=== PATIENT | male | born 1950 | race Caucasian/White ===

== ENCOUNTER 2022-10-21 11:06 | Observation (INO) | payer OTHER, MEDICAID, SELFPAY ==
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
--- NOTE | ~2022-10-21 | CT_ITS ---
EXAMINATION: CT angio head neck stroke CLINICAL INFORMATION: Left-sided decreased sensation. Suspect acute stroke. COMPARISON: CT head 10/21/2022. TECHNIQUE: [employer] Liaison images were obtained. A CT angiogram of the head and neck was performed in the arterial phase after the intravenous administration of 70 mL Omnipaque 350. Pre and delayed postcontrast images of the head were also obtained. 3D images were processed on an independent workstation under concurrent supervision. Arterial stenoses are measured in accordance with NASCET criteria or similar method if applicable. This CT examination was performed using dose optimization techniques as appropriate, including one or more of the following: Automated exposure control, iterative reconstruction, and adjustment of technique factors (mA and/or kVp) according to patient size (this includes techniques or standardized protocols for targeted exams where dose is matched to indication/reason for exam). Fleischner Society criteria for the followup of incidental pulmonary nodules was implemented if appropriate. Total exam dose-length product 1597 mGy-cm FINDINGS: Head: Delayed postcontrast images reveal no abnormal intracranial mass or enhancement. There is no intracranial mass effect or midline shift. Lateral and third ventricles are proportionate to the subarachnoid spaces. No hydrocephalus. Ramos-white matter differentiation is grossly preserved and there is no evidence of acute territorial infarct. The calvarium and skull base are intact. Mastoid air cells and middle ear cavities are well aerated. Mild paranasal sinus disease primarily affecting the ethmoid air cells and maxillary sinuses. CT angiogram neck: Scattered atheromatous calcification involves the aortic arch apex. Origins of the major aortic branches are patent. Common carotid arteries are patent. Partially calcified atheromatous plaque involves both carotid bifurcations. No stenosis of the extracranial internal carotid arteries. The cervical segments of the vertebral arteries are widely patent. CT angiogram head: Intracranial internal carotid arteries are patent. The intradural vertebral artery segments and basilar artery are patent. Anterior, middle, and posterior cerebral artery complexes are normal. No intracranial large vessel occlusion. No identifiable aneurysm or high flow vascular lesion. Other: Soft tissues of the neck including the thyroid gland are normal. Grossly no pathologically enlarged cervical lymph nodes. No acute osseous finding. Specifically no worrisome lytic or blastic osseous lesion. Lung apices are clear. CT/CT angio head neck stroke IMPRESSION: Unremarkable examination in that there is no evidence of acute territorial infarct or hemorrhage. No abnormal intracranial mass or enhancement. There is no stenosis of the cervical carotid or vertebral arteries. No intracranial large vessel occlusion. This critical result was discussed with Chris Aguila at 11:53 AM on 10/21/2022 and it was ascertained that the content and urgency of the report was understood at the time of direct communication.
--- NOTE | ~2022-10-21 | XR_ITS ---
EXAMINATION: XR ABDOMEN KUB CLINICAL INDICATION: MRI clearance. COMPARISON: None available. TECHNIQUE: AP view of the abdomen. XR/XR KUB FINDINGS AND IMPRESSION: Normal bowel gas pattern. Moderate amount fecal material is present in the colon. No evidence of renal stones. Mild and moderate spondylosis of the visualized spine. Aortobiiliac stent graft in place. There are no unexpected radiopaque foreign bodies that would preclude performance of an MRI.
--- NOTE | ~2022-10-21 | CT_ITS ---
EXAMINATION: CT HEAD WITHOUT CONTRAST CLINICAL INFORMATION: Left-sided decreased sensation. COMPARISON: No relevant prior imaging. TECHNIQUE: [employer] images were obtained. CT imaging of the head was performed without contrast. Data was reformatted into multiplanar images at the acquisition workstation. This CT examination was performed using dose optimization techniques as appropriate, including one or more of the following: Automated exposure control, iterative reconstruction, and adjustment of technique factors (mA and/or kVp) according to patient size (this includes techniques or standardized protocols for targeted exams where dose is matched to indication/reason for exam). Fleischner Society criteria for the followup of incidental pulmonary nodules was implemented if appropriate. DLP: 765 mGy-cm. FINDINGS: There is no acute intracranial hemorrhage or abnormal extra-axial collection. No intracranial mass effect or midline shift. Lateral and third ventricles are proportionate to the subarachnoid spaces. No hydrocephalus. There is global loss of parenchymal volume and scattered chronic small vessel ischemic changes within the periventricular white matter. Ramos-white matter differentiation is grossly preserved and there is no evidence of acute territorial infarct. The calvarium and skull base are intact. Mastoid air cells and middle ear cavities are well aerated. Mild paranasal sinus disease primarily affecting the alveolar recesses of the maxillary sinuses. Globes and orbits are grossly symmetric. CT/CT head for stroke IMPRESSION: There is global loss of parenchymal volume and scattered chronic small vessel ischemic changes within the periventricular white matter. No evidence of acute territorial infarct or hemorrhage. This critical result was discussed with Chris Aguila at 11:44 AM on 10/21/2022 and it was ascertained that the content and urgency of the report was understood at the time of direct communication.
--- NOTE | ~2022-10-21 | XR_ITS ---
EXAMINATION: XR CHEST CLINICAL INFORMATION: Stroke COMPARISON: None available. TECHNIQUE: AP upright portable view of the chest was obtained. 11:50 AM FINDINGS: The lungs are well expanded. Multiple streaky densities are seen at the lung bases, left greater than right which most likely represent atelectasis, less likely pneumonia. No interstitial pulmonary edema or pneumothorax. No pleural effusion. The cardiomediastinal silhouette is within normal limits. Calcification of the thoracic arch indicative of atherosclerotic disease. XR/XR chest 1V IMPRESSION: No acute disease.
--- NOTE | ~2022-10-21 | MR_ITS ---
EXAMINATION: MR BRAIN WITHOUT CONTRAST CLINICAL INFORMATION: TIA. COMPARISON: Head CT dated 10/21/2022. TECHNIQUE: Multiplanar, multisequence imaging of the brain was performed without contrast. FINDINGS: No diffusion abnormalities are identified to suggest an acute infarct. Moderate diffuse brain parenchymal volume loss noted with ex vacuo dilatation of the ventricles. Mild chronic white matter microangiopathy is visible. No mass effect or midline shift is seen. No extra-axial fluid collections are seen. The brainstem and cerebellum are normal. The gradient refocused acquisition is normal. The craniovertebral junction, marrow signal, and midline structures are normal. The major intracranial flow voids at the level of the [place] are preserved. The dural venous sinus flow voids are maintained. There is trace fluid in the dependent mastoid air cells. Mild ethmoid sinus mucosal thickening noted. MR/MR head/brain wo con IMPRESSION: No acute intracranial process. Mild chronic white matter microangiopathy and generalized parenchymal volume loss.
[2022-10-21 11:12] VITALS: BP 111/73; PULSE 72; O2SAT 95
[2022-10-21 11:19] VITALS: BP 138/50; PULSE 72; RESP 15; TEMP 36.6; O2SAT 93; BMI 33.6
--- NOTE | 2022-10-21 11:19 | ED.NEUROSD ---
HPI - Neuro Symptoms/Deficit General Chief Complaint: Neuro Symptoms/Deficit Stated Complaint: L SIDE DECREASED SENSATION FROM SNF PER EMS Time Seen by Provider: 10/21/22 11:12 Source: patient and EMS Mode of arrival: EMS Limitations: other History of Present Illness HPI Narrative: 72-year-old male unknown to this hospital known to have schizoaffective disorder bipolar disorder has history of TA with her breathing residual left-sided weakness COPD restless legs syndrome diabetes hypertension coronary disease aortic aneurysm repair who presents from the patient [facility] facility where he has been living. Patient was in patient has been transferred over to this lower level care. Patient is here today after the nurse notes that he was complaining of some weakness of sensation on his left side patient denies any falls or injuries. Patient is very unreliable in all on helpful historian states unsure of his past medical history does not know if he has had a stroke in the past Related Data Allergies Allergy/AdvReac Type Severity Reaction Status Date / Time atorvastatin Allergy Unknown Verified 10/21/22 11:18 gabapentin Allergy Unknown Verified 10/21/22 11:18 nicotine Allergy Unknown Verified 10/21/22 11:18 Review of Systems Review of Systems: Review of systems: General: Patient denies any fever chills recent illness or falls Musculoskeletal: Denies back pain or body aches or other injuries HEENT: denies headache, runny nose, ear pain Respiratory: denies shortness of breath, cough Cardiovascular: no chest pain or palpitations : denies dysuria, frequency Abdomen: no nausea vomiting denies abdominal pain Extremities: no swelling, no pain Skin: no diaphoresis Yes all other systems are reviewed and are negative PMFSH Social History Social History Advance Directives: No Advance Directives Information Provided: No Physical Exam Vital Signs: Vital Signs: Last Vital Signs Temp 97.8 F 10/21/22 11:19 Pulse 72 10/21/22 11:19 Resp 15 10/21/22 11:19 BP 138/50 L 10/21/22 11:19 Pulse Ox 93 10/21/22 11:19 O2 Del Method Room Air 10/21/22 11:19 BMI result Body Mass Index 33.6 Neurological exam: CN II- XII tested. Patient is alert and oriented to person place and time. Patient has no dysphagia or dysarthia, denies good vision in all four vision chávez no nystagmus on exam, good strength to upper and lower extremities with normal reflexes to brachioradialis, wrist, patella and achilles. Negative romberg, good finger to nose and heel to crowley. General: Well-appearing well-nourished in no signs of distress HEENT: Normocephalic atraumatic Neck: No signs of JVD, no masses no tenderness or lymphadenopathy Cardiovascular: Regular rate and rhythm Respiratory: Clear to auscultation bilaterally Abdomen: Soft nontender no masses Extremities: Normal pedal pulses no signs of edema Skin: Dry warm no rashes Back: No tenderness full ROM Course Course Course Narrative: 1153 I spoke with radiology who state the CTA is negative and non contrast no ELVO. I spoke with Dr. Funk and relayed the story he felt the patient should be admitted. I offered up doing a MRI here as he has no obvious new deficits here at this time. He felt he should still get the full work up and admit . Labs are still pending at this time. 1244 Labs are all normal at this time. I will admit to medicine. Medications Administered Discontinued Medications Generic Name Dose Route Start Last Admin Trade Name Lauri PRN Reason Stop Dose Admin Aspirin 324 mg 10/21/22 11:52 10/21/22 12:04 Aspirin 81 Mg Tab.Chew PO 10/21/22 11:53 324 mg ONCE ONE Administration Sodium Chloride 1,000 mls @ 999 mls/hr 10/21/22 11:30 10/21/22 11:55 Ns IV 10/21/22 12:30 999 mls/hr .Q1H1M RANJEET Administration Iohexol 100 ml 10/21/22 11:43 10/21/22 11:43 Iohexol 350 Mg/Ml 100 Ml Infus..Btl IV 10/21/22 11:44 70 ml ONCE ONE Administration Medical Decision Making Medical Decision Making MDM Narrative: 72-year-old male with left-sided decreased sensation normal neuro exam on arrival NIH stroke scale 0 patient is not a tPA candidate again on repeat patient does not meet any criteria for tPA slide of this is chronic for the patient he is mostly sluggish as opposed to any acute deficit appreciated and this patient could be related to medication effect or other things as he is mostly sluggish as I said before. Will give patient fluids and check labs. Send patient for CT I will consult Neurology. Differential Diagnosis Differential Diagnoses: The differential diagnosis associated with the presentation includes Acute CVA patient is schizophrenic before adenoma is version or other psychiatric issue also get a workup for UTI infection electrolyte abnormality Admission/Observation Consideration of admission/observation: Escalation of care including admission/observation considered Consult Healthcare Provider Consult neurology on arrival Lab Data [facility] Lab Attestation statement: I reviewed the patient's lab results. 10/21/22 12:09 10/21/22 12:09 Labs: Lab Results 10/21/22 10/21/22 10/21/22 Range/Units 11:52 12:09 12:09 WBC 4.6 L (4.8-10.8) X10*3/uL RBC 4.78 (4.60-5.80) X10*6/uL Hgb 14.1 (14.0-18.0) g/dl Hct 42.7 (42.0-52.0) % MCV 89.3 (80.0-98.0) fL MCH 29.5 (27.0-33.0) pg MCHC 33.0 (31.0-36.0) g/dl RDW 13.9 (11.0-16.0) % Plt Count 196 (160-400) X10*3/uL MPV 9.5 (9.4-12.4) fL Immature Gran % (Auto) 0.4 (0.0-0.4) % Neut % (Auto) 66.6 (45-73) % Lymph % (Auto) 21.2 (20-40) % [place] % (Auto) 8.5 (2-11) % Eos % (Auto) 2.6 (0-4) % Baso % (Auto) 0.7 (0-2) % Lymph # (Auto) 1.0 L (1.2-4.9) X10*3/uL [place] # (Auto) 0.4 (0.1-1.2) X10*3/uL Eos # (Auto) 0.1 (0.0-0.4) X10*3/uL Baso # (Auto) 0.0 (0.0-0.2) X10*3/uL Abs Immat Gran (auto) 0.02 (0.00-0.03) X10*3/uL Absolute Neuts (auto) 3.1 (2.0-8.3) x10*3/uL Absolute Nucleated RBC 0.000 (0.0-0.012) X10*3/uL Nucleated RBC % (auto) 0.0 (0.0-0.2) /100WBC PT 11.6 (11.1-13.3) SEC Whole Blood PT 12.4 (11.1-13.5) sec INR 1.0 (0.9-1.1) Whole Blood INR 1.0 (0.9-1.1) APTT 28.8 (26.0-36.4) SEC Sodium 139 (135-145) mmol/L Potassium 4.7 (3.3-5.1) mmol/L Chloride 106 (96-108) mmol/L Carbon Dioxide 26 (22-29) mmol/L Anion Gap 12 (12-20) BUN 17 H (9-16) mg/dL Creatinine 0.92 (0.5-1.4) mg/dL Estim Creat Clear Calc 82.0 Estimated GFR > 60 POC Glucose 190 H (60-115) mg/dL Random Glucose 175 H 175 H (60-115) mg/dL Calcium 9.7 (8.4-10.2) mg/dL Total Bilirubin 0.3 (0.0-1.0) mg/dL Direct Bilirubin 0.1 (0.0-0.5) mg/dL AST 16 (5-37) U/L ALT 20 (0-40) U/L Alkaline Phosphatase 67 (39-117) U/L Total Protein 6.4 L (6.5-8.0) g/dL Albumin 4.1 (3.5-5.0) g/dL Urine Color Yellow Urine Appearance Clear Urine pH 6.5 (5.0-9.0) Ur Specific [place] 1.020 (1.005-1.025) Urine Protein Negative (Neg-Trace) mg/dL Urine Glucose (UA) Negative (Negative) mg/dL Urine Ketones Negative (Negative) mg/dL Urine Blood Negative (Negative) Urine Nitrite Negative (Negative) Ur Leukocyte Esterase Negative (Negative) Independent Interpretation I performed an independent interpretation of an: EKG, Rhythm Strip and CT Scan Radiology Impression Discussion of test interpretation with radiology: I discussed test interpretation with the radiologist and I have reviewed the radiologist's reading. Independent Historian Clinical information obtained from an independent historian. History obtained from or confirmed by: EMS and Other External Record Review there are no previous records to review NIH Stroke Scale Internal: Initial- Upon Arrival Level of Consciousness: Alert Level of Consciousness Questions: Answers both questions correctly Level of Consciousness Commands: Performs both tasks correctly Best Gaze: Normal Visual: No visual loss Facial Palsy: Normal Motor Arm (Right): No drift Motor Arm (Left): No drift Motor Leg (Right): No drift Motor Leg (Left): No drift Limb Ataxia: Absent Sensory: Normal Best Language: No aphasia Dysarthia: Normal Extinction and Inattention: No abnormality Score: 0 Critical Care Time Critical Care Time Critical Care Time: Yes Total Critical Care Time: 35 Attestation: Patient with stroke seen immediately on arrival not a TPA candidate I did speak with radiology x 2 as well as Neurology and admitted to the hospital Discharge Plan Discharge Clinical Impression: Transient cerebral ischemia, Acute left-sided muscle weakness Patient Disposition: Admitted As Inpatient
--- NOTE | 2022-10-21 11:23 | ECG_ITS ---
Test Reason : weakness Blood Pressure : / mmHG Vent. Rate : 071 BPM Atrial Rate : 071 BPM P-R Int : 154 ms QRS Dur : 080 ms QT Int : 372 ms P-R-T Axes : 034 -66 039 degrees QTc Int : 404 ms Normal sinus rhythm Left axis deviation Inferior infarct , age undetermined Abnormal ECG No previous ECGs available Referred By: Chris Aguila Electronically Signed By:ISABELA JERRY
--- NOTE | 2022-10-21 11:31 | PC.NURSE ---
patient from [facility], noted to have weakness by staff. pt presented with staff member. IV placed in the R AC, #20. VSS, patient has no complaints
[2022-10-21] MEDS: iohexoL 350 MG/ML 100 ML INFUS..BTL IV (11:43)
[2022-10-21] MEDS: 0.9 % Sodium Chloride 1,000 ML 999 ML IV (11:55)
[2022-10-21 11:56] LABS: Prothrombin Time Whole Bld POC 12.4 sec (11.1-13.5)
[2022-10-21 11:57] LABS: Glucose, Whole Blood 190 mg/dL (60-115)
[2022-10-21] MEDS: Aspirin 81 MG TAB.CHEW 324 MG PO (12:04)
--- NOTE | 2022-10-21 12:05 | PC.NURSE ---
patient sitting up in bed, passed swallow eval. patient, awake and alert, making jokes. states he has no pain or other complaints.
[2022-10-21 12:17] LABS: MANUAL DIFF FLAG NO
[2022-10-21 12:21] LABS: Basophils Percent Auto 0.7 % (0-2); Eosinophils Absolute Auto 0.1 X10*3/uL (0.0-0.4); Eosinophils Percent Auto 2.6 % (0-4); Hematocrit 42.7 % (42.0-52.0); Hemoglobin 14.1 g/dl (14.0-18.0); Imm Gran Abs Auto 0.02 X10*3/uL (0.00-0.03); Imm Gran Pct Auto 0.4 % (0.0-0.4); Lymphocytes Percent Auto 21.2 % (20-40); Mean Corpuscular Hemoglobin 29.5 pg (27.0-33.0); Mean Corpuscular Volume 89.3 fL (80.0-98.0); Mean Platelet Volume 9.5 fL (9.4-12.4); Monocytes Absolute Auto 0.4 X10*3/uL (0.1-1.2); Monocytes Percent Auto 8.5 % (2-11); Neutrophils Absolute Auto 3.1 x10*3/uL (2.0-8.3); Neutrophils Percent Auto 66.6 % (45-73); Platelet Count 196 X10*3/uL (160-400); Red Blood Count 4.78 X10*6/uL (4.60-5.80); Red Cell Distribution Width 13.9 % (11.0-16.0); White Blood Count 4.6 X10*3/uL (4.8-10.8)
[2022-10-21 12:23] LABS: Appearance Urine Clear; Color Urine Yellow; Glucose Urine UA Negative (Negative); Leukocyte Esterase Urine Negative (Negative); Nitrite Urine Negative (Negative); PH 6.5 (5.0-9.0); Urine Blood Negative (Negative); Urine Ketones Negative (Negative); Urine Protein Negative (Neg-Trace)
[2022-10-21 12:27] LABS: Prothrombin Time 11.6 SEC (11.1-13.3)
[2022-10-21 12:30] LABS: Partial Thromboplastin Time 28.8 SEC (26.0-36.4)
[2022-10-21 12:31] LABS: Glucose Random 175 mg/dL (60-115)
[2022-10-21 12:36] LABS: Alanine Aminotransferase 20 U/L (0-40); Albumin Level 4.1 g/dL (3.5-5.0); Alkaline Phosphatase 67 U/L (39-117); Anion Gap 12 (12-20); Aspartate Amino Transferase 16 U/L (5-37); Bilirubin Direct 0.1 mg/dL (0.0-0.5); Bilirubin Total 0.3 mg/dL (0.0-1.0); Blood Urea Nitrogen 17 mg/dL (9-16); Calcium 9.7 mg/dL (8.4-10.2); Carbon Dioxide 26 mmol/L (22-29); Chloride 106 mmol/L (96-108); Estimated Glomerular Filt Rate > 60; Glucose Random 175 mg/dL (60-115); Potassium 4.7 mmol/L (3.3-5.1); Sodium 139 mmol/L (135-145); Total Protein 6.4 g/dL (6.5-8.0)
[2022-10-21 12:44] LABS: Troponin-I High Sensitivity < 2.7 ng/L (<3.5-35.0)
[2022-10-21 12:53] LABS: Stroke Lab Use COMPLETE
--- NOTE | 2022-10-21 13:50 | PHA.MEDREC ---
Pharmacy Consult ? Medication Reconciliation Pharmacy has completed the medication reconciliation. Patient came from inpatient psych at [facility] with medications list. Utilized active mediation as well as inpatient list to create med rec. Metoprolol ER 50 mg and Metoprolol ER 25 mg were noth list however only metoprolol 25 mg had a first dose therefore I kept metoprolol 25 mg on the home list. Maria Esther Gloria, PharmD
[2022-10-21] MEDS: Enoxaparin Sodium 40 MG/0.4 ML SYRINGE SUBCUT (13:58)
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
[2022-10-21 14:00] VITALS: BP 111/69; PULSE 65; RESP 12; TEMP 36.6; O2SAT 95
--- NOTE | 2022-10-21 14:26 | PC.NURSE ---
patient sitting up and eating lunch in the chair, patient was evaluated by PT. alert and oriented
[2022-10-21 14:30] LABS: Estimated Average Glucose 160 mg/dL; Hemoglobin A1c % 7.2 % (<6.0)
[2022-10-21 15:57] VITALS: BP 137/49; PULSE 67; RESP 16; TEMP 36.5; O2SAT 98
--- NOTE | 2022-10-21 16:00 | MHC.EDTECH ---
THIS PCT ASSUMED CARE OF PT AT 1500 ,VITALS SIGN TAKEN PT AWAKE WATCHING TELEVISION ,1 :1 SITTER AT BEDSIDE .
[2022-10-21] MEDS: 0.9 % Sodium Chloride Flush 3 ML SYRINGE IVFLUSH ×2 (16:07→22:13)
--- NOTE | 2022-10-21 16:08 | PC.NURSE ---
patient resting in bed, vital signs stable. respirations equal and unlabored, patient easily arousable. staff member from facility at bedside
--- NOTE | 2022-10-21 17:15 | PC.NURSE ---
patient has had multiple episodes of incontinence, placed [place] cath on patient with bag. patient now resting in bed, alert and oriented.
[2022-10-21 18:18] LABS: Glucose, Whole Blood 111 mg/dL (60-115)
[2022-10-21] MEDS: Omeprazole 20 MG CAPSULE.DR PO (18:25)
[2022-10-21 19:40] VITALS: BP 120/58; PULSE 59; RESP 17; TEMP 36.5; O2SAT 93
[2022-10-21 20:08] LABS: Glucose, Whole Blood 133 mg/dL (60-115)
[2022-10-21] MEDS: OLANZapine 10 MG TABLET 30 MG PO (22:11)
[2022-10-21] MEDS: lamoTRIgine 100 MG TABLET 300 MG PO (22:11)
[2022-10-21] MEDS: rOPINIRole HCL 1 MG TABLET PO (22:11)
[2022-10-21] MEDS: Benztropine Mesylate 1 MG TABLET PO (22:12)
[2022-10-22] VITALS (8 sets, daily range): BP systolic 108–156; BP diastolic 63–89; PULSE 51–76; RESP 15–20; TEMP 36.2–36.7; O2SAT 90–98
--- NOTE | 2022-10-22 | EEG_ITS ---
This is a 16-channel EEG with an EKG lead. The patient is reported awake and drowsy during the tracing. Background EEG rhythm is mixed theta, beta 5-50 microvolt posteriorly and lower amplitude fast anteriorly. Photic stimulation does not produce any significant driving. Hyperventilation is not performed. Cardiac lead does not reveal any significant abnormality. No sharp wave spikes or paroxysmal tendency noted. IMPRESSION: No significant abnormality other than mild slowing noted on this EEG. MD MUSHTAQ Khanna/JG / [id number]
[2022-10-22] MEDS: Omeprazole 20 MG CAPSULE.DR PO ×2 (06:20→16:17)
--- NOTE | 2022-10-22 07:00 | CA_ITS ---
Transthoracic Echocardiogram Patient (Last, First, Middle): Jeromy Mcgill, Gender: Male Date of : 1950 Age: 72 Procedure Date: 10/22/2022 Procedure Type: Transthoracic Echocardiogram Location: [facility] [place] Height: 172.72 cm Weight: 99.79 kg BSA: 2.13 m2 Heart Rate: bpm BP: 138 / 50 mmHg Orthodontist Vice President: MILADYS Referring MD: Lilian YEAGER Symptoms: tia Study Quality: Poor, contrast Conclusions: - Based on limited image quality, LVEF probably >50%. - Valves not adequately visualized. - Markedly limited study quality. Findings Procedure Information Contrast agent, definity, is being given per protocol without apparent complications. The quality of the study was despite the use of contrast and endocardial definition remains poor. The study quality is limited by patients body habitus. Left Ventricle Normal left ventricular cavity size. Regional wall motion abnormalities can not be excluded due to suboptimal endocardial definition. Diastolic function is normal for age. Based on limited image quality, LVEF probably >50%. Right Ventricle Mildly increased right ventricular cavity size. There is normal right ventricular systolic function. Atria The left atrium was not well visualized. The right atrium is mildly dilated. Aortic Valve The aortic valve was not well visualized. Mitral Valve The mitral valve was not well visualized. Pulmonic Valve The pulmonic valve was not well visualized. Tricuspid Valve The tricuspid valve was not well visualized. There is no tricuspid valve regurgitation. Tricuspid regurgitation envelope is inadequate for calculation of right ventricular systolic pressure. Great Vessels The aorta was not well visualized. The asc aorta is normal in size. Venous The inferior vena cava was not well visualized. Pericardium/Pleural There is no evidence of pericardial effusion. Prior Study Comparison No prior study available for comparison. Measurements 2D Linear Measurements LVOT Diam: 2.20 3.0+(-)1.3 cm Mitral Valve MV Pk E: 0.57 MV PK A: 0.69 MV Decel Time: 338.00 E/A: 0.80 E'Lateral: 10.10 E'Medial: 6.20 E/E' Med: 9.10 E/E' Lat: 5.60 PHT: 99.00 MVA PHT: 2.22 Decel [place]: 1.67 LVOT LVOT Diam: 2.20 LVOT Area: 3.80 Diastolic Function MV Pk E: 0.57 MV Pk A: 0.69 E/A: 0.80 E'Medial: 6.20 E/E' Med: 9.10 E' Laterial: 10.10 E/E' Lat: 5.60 Right Ventricle TAPSE (mm): 22.00 TVS' Junior: 14.30 Great Vessels Aorta Sinus of Valsalva: 3.40 2.0-3.5 cm Ao Asc: 3.50 2.1-3.4 cm Updated in Other Vendor System with Status of Final Dmitriy Rodney MD electronically signed on 10/22/2022 3:29:16 PM with status of Final
[2022-10-22 07:12] LABS: Glucose, Whole Blood 176 mg/dL (60-115)
[2022-10-22 07:20] LABS: MANUAL DIFF FLAG NO
[2022-10-22 07:24] LABS: Basophils Percent Auto 0.8 % (0-2); Eosinophils Absolute Auto 0.2 X10*3/uL (0.0-0.4); Eosinophils Percent Auto 3.8 % (0-4); Hematocrit 40.9 % (42.0-52.0); Hemoglobin 13.7 g/dl (14.0-18.0); Imm Gran Abs Auto 0.03 X10*3/uL (0.00-0.03); Imm Gran Pct Auto 0.8 % (0.0-0.4); Lymphocytes Percent Auto 26.1 % (20-40); Mean Corpuscular HGB Conc 33.5 g/dl (31.0-36.0); Mean Corpuscular Hemoglobin 29.3 pg (27.0-33.0); Mean Corpuscular Volume 87.6 fL (80.0-98.0); Monocytes Absolute Auto 0.4 X10*3/uL (0.1-1.2); Monocytes Percent Auto 9.1 % (2-11); Neutrophils Absolute Auto 2.3 x10*3/uL (2.0-8.3); Neutrophils Percent Auto 59.4 % (45-73); Platelet Count 188 X10*3/uL (160-400); Red Blood Count 4.67 X10*6/uL (4.60-5.80); White Blood Count 3.9 X10*3/uL (4.8-10.8)
[2022-10-22 07:39] LABS: Anion Gap 12 (12-20); Blood Urea Nitrogen 16 mg/dL (9-16); Calcium 9.1 mg/dL (8.4-10.2); Carbon Dioxide 26 mmol/L (22-29); Chloride 106 mmol/L (96-108); Cholesterol 197 mg/dL (<200); Creatinine Clr Calc Pharmacy 93.1; Estimated Glomerular Filt Rate > 60; Glucose Random 172 mg/dL (60-115); HDL Cholesterol 49 mg/dL (>40); LDL Cholesterol Calculated 123 mg/dL (<100); Potassium 4.3 mmol/L (3.3-5.1); Sodium 140 mmol/L (135-145); Triglycerides 129 mg/dL (<150)
[2022-10-22] MEDS: OLANZapine 5 MG TABLET PO (07:58)
[2022-10-22] MEDS: Benztropine Mesylate 0.5 MG TABLET PO (07:58)
[2022-10-22] MEDS: Insulin Lispro 100 UNIT/ML 3 ML VIAL SUBCUT ×3 (07:58→20:29)
[2022-10-22] MEDS: Aspirin Enteric Coated 81 MG TABLET.DR PO (07:59)
[2022-10-22] MEDS: 0.9 % Sodium Chloride Flush 3 ML SYRINGE IVFLUSH ×3 (07:59→20:29)
--- NOTE | 2022-10-22 09:50 | MHC.CM.PN ---
CM met with Patient at bedside and addressed AUGUSTE with him,providing Patient with the original and placing a copy on the chart.Patient comes to [facility] from [facility] and his goal is to return there once medically cleared for dc. CM has initiated and will follow for dc planning. At baseline, Patient lives alone in a house and required no DME to assist with mobility. Patient was receiving [facility] and [place]/RN 3X/week for med management. Patient's PCP is Dr. Trung Donnelly.
--- NOTE | 2022-10-22 10:46 | P.PNIM_ITS ---
Subjective Subjective Date of Service: 10/22/22 Review of Systems Follow up possible TIA no weakness Physical Exam 2 Vital Signs: Vital Signs: Last Vital Signs Temp 97.2 F 10/22/22 07:11 Pulse 76 10/22/22 08:32 Resp 20 10/22/22 08:32 BP 156/70 H 10/22/22 07:11 Pulse Ox 93 10/22/22 07:11 O2 Del Method Room Air 10/22/22 07:11 BMI result Body Mass Index 33.6 Appearing in no acute distress lung sounds are clear to auscultation heart regular rate rhythm, clear S1, S2 positive bowel sounds, abdomen is soft, nontender neuro patient is alert x3, no focal deficits, MOMIN Objective Data Active Medications Acetaminophen (Acetaminophen 325 Mg Tablet) 650 mg PO Q6H PRN PRN Reason: Pain, Mild (Pain Scale 1-3) Albuterol Sulfate (Albuterol Sulfate 90 Mcg 8 Gm Inhaler) 2 puff INHALE Q4H PRN PRN Reason: Shortness Of Breath Albuterol/Ipratropium (Albuterol/Iprat 2.5/0.5mg 3 Ml Ampul.Neb) 3 ml INHALE Q4H PRN PRN Reason: Shortness Of Breath Aspirin (Aspirin Enteric Coated 81 Mg Tablet.) 81 mg PO DAILY [facility] Last Admin: 10/22/22 07:59 Dose: 81 mg Documented By: BOOM Benztropine Mesylate (Benztropine Mesylate 0.5 Mg Tablet) 0.5 mg PO DAILY [facility] Last Admin: 10/22/22 07:58 Dose: 0.5 mg Documented By: BOOM Benztropine Mesylate (Benztropine Mesylate 1 Mg Tablet) 1 mg PO BEDTIME [facility] Last Admin: 10/21/22 22:12 Dose: 1 mg Documented By: MANJINDER Dextrose (Dextrose 50 % 25 Gm/50 Ml Syringe) 25 gm IVPUSH Q15M PRN; Protocol PRN Reason: per Hypoglycemia Standing Ord. Diphenhydramine HCl (Diphenhydramine Hcl 25 Mg Capsule) 25 mg PO BEDTIME PRN PRN Reason: Insomnia Docusate Sodium (Docusate Sodium 100 Mg Capsule) 100 mg PO DAILY PRN PRN Reason: Constipation Enoxaparin Sodium (Enoxaparin Sodium 40 Mg/0.4 Ml Syringe) 40 mg SUBCUT Q24H [facility] Last Admin: 10/21/22 13:58 Dose: 40 mg Documented By: KAYLIE Glucose (Glucose Gel 15 Gm Gel..Gram.) 15 gm PO Q15M PRN; Protocol PRN Reason: per Hypoglycemia Standing Ord. Insulin Human Lispro (Insulin Lispro 100 Unit/Ml 3 Ml Vial) 0 unit SUBCUT QIDACHS [facility]; Protocol Last Admin: 10/22/22 07:58 Dose: 2 unit Documented By: BOOM Lamotrigine (Lamotrigine 100 Mg Tablet) 300 mg PO BEDTIME [facility] Last Admin: 10/21/22 22:11 Dose: 300 mg Documented By: MANJINDER Melatonin (Melatonin 3 Mg Tablet) 3 mg PO BEDTIME PRN PRN Reason: Insomnia Metoprolol Succinate (Metoprolol Succinate Er 25 Mg Tab.Er.24h) 25 mg PO DAILY [facility]; Protocol Last Admin: 10/22/22 07:19 Dose: Not Given Documented By: BOOM Non-Admin Reason: Decreased Heart Rate Olanzapine (Olanzapine 5 Mg Tablet) 5 mg PO DAILY [facility] Last Admin: 10/22/22 07:58 Dose: 5 mg Documented By: BOOM Olanzapine (Olanzapine 5 Mg Tablet) 5 mg PO Q6H PRN PRN Reason: Agitation Olanzapine (Olanzapine 10 Mg Tablet) 30 mg PO BEDTIME [facility] Last Admin: 10/21/22 22:11 Dose: 30 mg Documented By: MANJINDER Omeprazole (Omeprazole 20 Mg Capsule.) 20 mg PO BID@0630,1630 [facility] Last Admin: 10/22/22 06:20 Dose: 20 mg Documented By: MANJINDER Ondansetron HCl (Ondansetron Hcl 4 Mg/2 Ml Vial) 4 mg IVPUSH Q8H PRN PRN Reason: Nausea and Vomiting Ropinirole HCl (Ropinirole Hcl 1 Mg Tablet) 1 mg PO BEDTIME [facility] Last Admin: 10/21/22 22:11 Dose: 1 mg Documented By: MANJINDER Sodium Chloride (0.9 % Sodium Chloride Flush 3 Ml Syringe) 3 ml IVFLUSH QSHIFT [facility] Last Admin: 10/22/22 07:59 Dose: 3 ml Documented By: BOOM Tiotropium Duncan (Tiotropium Duncan 2.5 Mcg Inhaler) 2 puff INHALE RDAILY RANJEET Last Admin: 10/22/22 08:29 Dose: 2 puff Documented By: KAYY Tramadol HCl (Tramadol Hcl 50 Mg Tablet) 50 mg PO Q6H PRN PRN Reason: Pain (Scale Score 4-6) Labs 10/22/22 07:04 10/22/22 07:04 Labs: Laboratory Results - last 24 hr 10/21/22 10/21/22 10/21/22 11:52 12:09 12:09 MCV 89.3 MCH 29.5 MCHC 33.0 RDW 13.9 Plt Count 196 MPV 9.5 Immature Gran % (Auto) 0.4 Neut % (Auto) 66.6 Lymph % (Auto) 21.2 [place] % (Auto) 8.5 Eos % (Auto) 2.6 Baso % (Auto) 0.7 Lymph # (Auto) 1.0 L [place] # (Auto) 0.4 Eos # (Auto) 0.1 Baso # (Auto) 0.0 Abs Immat Gran (auto) 0.02 Absolute Neuts (auto) 3.1 Absolute Nucleated RBC 0.000 Nucleated RBC % (auto) 0.0 PT 11.6 Whole Blood PT 12.4 INR 1.0 Whole Blood INR 1.0 APTT 28.8 Anion Gap 12 Estim Creat Clear Calc 82.0 Estimated GFR > 60 POC Glucose 190 H Random Glucose 175 H 175 H Estimat Average Glucose 160 Hemoglobin A1c % 7.2 H Calcium 9.7 Total Bilirubin 0.3 Direct Bilirubin 0.1 AST 16 ALT 20 Alkaline Phosphatase 67 Total Protein 6.4 L Albumin 4.1 Triglycerides Cholesterol LDL Cholesterol, Calc HDL Cholesterol Urine Color Yellow Urine Appearance Clear Urine pH 6.5 Ur Specific [employer] 1.020 Urine Protein Negative Urine Glucose (UA) Negative Urine Ketones Negative Urine Blood Negative Urine Nitrite Negative Ur Leukocyte Esterase Negative 10/21/22 10/21/22 10/22/22 18:02 19:52 07:01 MCV MCH MCHC RDW Plt Count MPV Immature Gran % (Auto) Neut % (Auto) Lymph % (Auto) [place] % (Auto) Eos % (Auto) Baso % (Auto) Lymph # (Auto) [place] # (Auto) Eos # (Auto) Baso # (Auto) Abs Immat Gran (auto) Absolute Neuts (auto) Absolute Nucleated RBC Nucleated RBC % (auto) PT Whole Blood PT INR Whole Blood INR APTT Anion Gap Estim Creat Clear Calc Estimated GFR POC Glucose 111 133 H 176 H Random Glucose Estimat Average Glucose Hemoglobin A1c % Calcium Total Bilirubin Direct Bilirubin AST ALT Alkaline Phosphatase Total Protein Albumin Triglycerides Cholesterol LDL Cholesterol, Calc HDL Cholesterol Urine Color Urine Appearance Urine pH Ur Specific [employer] Urine Protein Urine Glucose (UA) Urine Ketones Urine Blood Urine Nitrite Ur Leukocyte Esterase 10/22/22 07:04 MCV 87.6 MCH 29.3 MCHC 33.5 RDW 14.0 Plt Count 188 MPV 10.0 Immature Gran % (Auto) 0.8 H Neut % (Auto) 59.4 Lymph % (Auto) 26.1 [place] % (Auto) 9.1 Eos % (Auto) 3.8 Baso % (Auto) 0.8 Lymph # (Auto) 1.0 L [place] # (Auto) 0.4 Eos # (Auto) 0.2 Baso # (Auto) 0.0 Abs Immat Gran (auto) 0.03 Absolute Neuts (auto) 2.3 Absolute Nucleated RBC 0.000 Nucleated RBC % (auto) 0.0 PT Whole Blood PT INR Whole Blood INR APTT Anion Gap 12 Estim Creat Clear Calc 93.1 Estimated GFR > 60 POC Glucose Random Glucose 172 H Estimat Average Glucose Hemoglobin A1c % Calcium 9.1 D Total Bilirubin Direct Bilirubin AST ALT Alkaline Phosphatase Total Protein Albumin Triglycerides 129 Cholesterol 197 LDL Cholesterol, Calc 123 H HDL Cholesterol 49 Urine Color Urine Appearance Urine pH Ur Specific [employer] Urine Protein Urine Glucose (UA) Urine Ketones Urine Blood Urine Nitrite Ur Leukocyte Esterase Assessment and Plan (1) Acute left-sided muscle weakness: Status: Acute Plan 72-year-old male with history of schizoaffective disorder, bipolar disorder, COPD, restless legs syndrome, hypertension, coronary artery disease, history ascending aortic aneurysm repair, [id number] type 2 diabetes, history of TIA to be observed for TIA. Left extremity weakness/paresthesias- likely r/t TIA symptoms resolved on admission head CT and CTA head/neck negative for any acute abnormality, significant stenosis given 325 mg ASA. Continue 81 mg ASA daily allergy to statins. LDL 123 neurology consult>rec EEG and asa 81mg echo ordered [id number] type 2 diabetes ss, ada diet A1C 7.2 hypertension blood pressure reasonably controlled hold antihypertensives in setting of acute TIA coronary artery disease no anginal chest pain, troponin below detectable limits continue ASA. Resume beta-mariano as appropriate. Allergy to statins RLS continue of Requip COPD no acute exacerbation continue Spiriva, albuterol p.r.n. DVT prophylaxis-Lovenox Attending Dr. Espino Full code Time Spent With Patient Time: Total time managing care of this patient today ____ minutes. Quality Stroke Does the patient have a stroke diagnosis?: Yes Reason for No Anti-thrombotic by Day Two: Drug treatment not indicated VTE Prior VTE?: No VTE Risk Level:: Medical - moderate - high VTE Device Contraindication: Treatment Not Indicated VTE Drug Contraindication: N/A - Med Ordered
[2022-10-22 10:59] LABS: Glucose, Whole Blood 215 mg/dL (60-115)
--- NOTE | 2022-10-22 10:59 | P.CNNE_ITS ---
History of Present Illness Data of Consult Service Date: 10/22/22 Primary Care Provider: Trung Donnelly MD HPI Reason for consult: Left hemiparesis 72-year-old male with history of schizoaffective disorder, bipolar disorder, COPD, restless legs syndrome, hypertension, coronary artery disease, history ascending aortic aneurysm repair, [id number] type 2 diabetes, history of TIA presented to the ED earlier today from [place] at [facility] where he resides for evaluation of new onset left upper and lower extremity weakness and paresthesias. Patient reported the now he was feeling better. He said that he was told he might have TIA. There was no complaint of headache. His initial CTA did not reveal any vascular disease or obvious stroke. Review of Systems 2 Review of Systems: No recent cold or flu-like illness and obvious seizure-like episode [facility] Past Medical History Medical History History of TIA (transient ischemic attack) Type 2 diabetes mellitus Hypertension Restless leg syndrome Coronary artery disease COPD (chronic obstructive pulmonary disease) Bipolar disorder Schizoaffective disorder Surgical History Surgical History History of aortic aneurysm repair Social History Social History Household Members: Other Household Members Other:: From [facility] Housing: Other Housing Other:: [facility] facility, [place] Unable to assess alcohol history related to: Unknown Patient Tobacco Use Status: Tobacco use Unknown Use of substances other than those prescribed or required for medical reasons: Unknown Currently Displaying Signs/Symptoms of Drug Intoxication Withdrawal: No Any prior treatment program specific to substance use: No (Unable to assess; pt poor historian) Advance Directives: No Advance Directives Information Provided: No Do you have thoughts of harming others: None Do you have a plan to hurt others: No Plan Recently lost weight without trying: No How much weight loss: Not applicable Eating poorly because of decreased appetite: No Nutrition screen score: 0 Nutrition Risks: On aspiration precautions Poor oral hygiene: No service: No Meds Allergies Allergy/AdvReac Type Severity Reaction Status Date / Time atorvastatin Allergy Unknown Verified 10/21/22 11:18 gabapentin Allergy Unknown Verified 10/21/22 11:18 nicotine Allergy Unknown Verified 10/21/22 11:18 Active Medications: Current Medications Acetaminophen (Acetaminophen 325 Mg Tablet) 650 mg PO Q6H PRN PRN Reason: Pain, Mild (Pain Scale 1-3) Albuterol Sulfate (Albuterol Sulfate 90 Mcg 8 Gm Inhaler) 2 puff INHALE Q4H PRN PRN Reason: Shortness Of Breath Albuterol/Ipratropium (Albuterol/Iprat 2.5/0.5mg 3 Ml Ampul.Neb) 3 ml INHALE Q4H PRN PRN Reason: Shortness Of Breath Aspirin (Aspirin Enteric Coated 81 Mg Tablet.Dr) 81 mg PO DAILY COUNTS INCLUDE 234 BEDS AT THE [facility] Last Admin: 10/22/22 07:59 Dose: 81 mg Benztropine Mesylate (Benztropine Mesylate 0.5 Mg Tablet) 0.5 mg PO DAILY COUNTS INCLUDE 234 BEDS AT THE [facility] Last Admin: 10/22/22 07:58 Dose: 0.5 mg Benztropine Mesylate (Benztropine Mesylate 1 Mg Tablet) 1 mg PO BEDTIME COUNTS INCLUDE 234 BEDS AT THE [facility] Last Admin: 10/21/22 22:12 Dose: 1 mg Dextrose (Dextrose 50 % 25 Gm/50 Ml Syringe) 25 gm IVPUSH Q15M PRN; Protocol PRN Reason: per Hypoglycemia Standing Ord. Diphenhydramine HCl (Diphenhydramine Hcl 25 Mg Capsule) 25 mg PO BEDTIME PRN PRN Reason: Insomnia Docusate Sodium (Docusate Sodium 100 Mg Capsule) 100 mg PO DAILY PRN PRN Reason: Constipation Enoxaparin Sodium (Enoxaparin Sodium 40 Mg/0.4 Ml Syringe) 40 mg SUBCUT Q24H COUNTS INCLUDE 234 BEDS AT THE [facility] Last Admin: 10/21/22 13:58 Dose: 40 mg Glucose (Glucose Gel 15 Gm Gel..Gram.) 15 gm PO Q15M PRN; Protocol PRN Reason: per Hypoglycemia Standing Ord. Insulin Human Lispro (Insulin Lispro 100 Unit/Ml 3 Ml Vial) 0 unit SUBCUT QIDACHS COUNTS INCLUDE 234 BEDS AT THE [facility]; Protocol Last Admin: 10/22/22 07:58 Dose: 2 unit Lamotrigine (Lamotrigine 100 Mg Tablet) 300 mg PO BEDTIME COUNTS INCLUDE 234 BEDS AT THE [facility] Last Admin: 10/21/22 22:11 Dose: 300 mg Melatonin (Melatonin 3 Mg Tablet) 3 mg PO BEDTIME PRN PRN Reason: Insomnia Metoprolol Succinate (Metoprolol Succinate Er 25 Mg Tab.Er.24h) 25 mg PO DAILY COUNTS INCLUDE 234 BEDS AT THE [facility]; Protocol Last Admin: 10/22/22 07:19 Dose: Not Given Olanzapine (Olanzapine 5 Mg Tablet) 5 mg PO DAILY COUNTS INCLUDE 234 BEDS AT THE [facility] Last Admin: 10/22/22 07:58 Dose: 5 mg Olanzapine (Olanzapine 5 Mg Tablet) 5 mg PO Q6H PRN PRN Reason: Agitation Olanzapine (Olanzapine 10 Mg Tablet) 30 mg PO BEDTIME COUNTS INCLUDE 234 BEDS AT THE [facility] Last Admin: 10/21/22 22:11 Dose: 30 mg Omeprazole (Omeprazole 20 Mg Capsule.Dr) 20 mg PO BID@0630,1630 COUNTS INCLUDE 234 BEDS AT THE [facility] Last Admin: 10/22/22 06:20 Dose: 20 mg Ondansetron HCl (Ondansetron Hcl 4 Mg/2 Ml Vial) 4 mg IVPUSH Q8H PRN PRN Reason: Nausea and Vomiting Ropinirole HCl (Ropinirole Hcl 1 Mg Tablet) 1 mg PO BEDTIME COUNTS INCLUDE 234 BEDS AT THE [facility] Last Admin: 10/21/22 22:11 Dose: 1 mg Sodium Chloride (0.9 % Sodium Chloride Flush 3 Ml Syringe) 3 ml IVFLUSH QSHIFT COUNTS INCLUDE 234 BEDS AT THE [facility] Last Admin: 10/22/22 07:59 Dose: 3 ml Tiotropium [place] (Tiotropium [place] 2.5 Mcg Inhaler) 2 puff INHALE RDAILY COUNTS INCLUDE 234 BEDS AT THE [facility] Last Admin: 10/22/22 08:29 Dose: 2 puff Tramadol HCl (Tramadol Hcl 50 Mg Tablet) 50 mg PO Q6H PRN PRN Reason: Pain (Scale Score 4-6) Home Medications Medication Instructions Recorded Confirmed Last Taken Type acetaminophen 325 mg tablet 650 mg PO Q4H PRN Pain, Mild 10/21/22 10/21/22 Unknown History albuterol sulfate 90 mcg/actuation 2 puff inhalation Q4H PRN 10/21/22 10/21/22 Unknown History aerosol inhaler Shortness Of Breath aspirin 81 mg chewable tablet 81 mg PO DAILY 10/21/22 10/21/22 Unknown History benztropine 0.5 mg tablet 0.5 mg PO DAILY 10/21/22 10/21/22 Unknown History benztropine 1 mg tablet 1 mg PO BEDTIME 10/21/22 10/21/22 Unknown History diphenhydramine HCl 25 mg tablet 25 mg PO BEDTIME PRN Insomnia 10/21/22 10/21/22 Unknown History glipizide 10 mg tablet, extended 10 mg PO DAILY 10/21/22 10/21/22 Unknown History release 24 hr ipratropium 0.5 mg-albuterol 3 mg 3 ml inhalation Q4H PRN Shortness 10/21/22 10/21/22 Unknown History (2.5 mg base)/3 mL nebulization Of Breath soln lamotrigine 100 mg tablet 300 mg PO BEDTIME 10/21/22 10/21/22 Unknown History melatonin 3 mg tablet 3 mg PO BEDTIME PRN Insomnia 10/21/22 10/21/22 Unknown History metformin 1,000 mg tablet 1,000 mg PO BID 10/21/22 10/21/22 Unknown History metformin 500 mg tablet 250 mg PO BID 10/21/22 10/21/22 Unknown History metoprolol succinate 25 mg 25 mg PO DAILY 10/21/22 10/21/22 Unknown History tablet,extended release 24 hr olanzapine 15 mg tablet (Zyprexa) 30 mg PO BEDTIME 10/21/22 10/21/22 Unknown History olanzapine 5 mg tablet (Zyprexa) 5 mg PO DAILY 10/21/22 10/21/22 Unknown History olanzapine 5 mg tablet (Zyprexa) 5 mg PO Q6H PRN Agitation 10/21/22 10/21/22 Unknown History omeprazole 20 mg tablet,delayed 20 mg PO BID 10/21/22 10/21/22 Unknown History release paliperidone palmitate 234 mg/1.5 234 mg IM QMONTH 10/21/22 10/21/22 10/10/22 History mL intramuscular syringe (Invega Sustenna) ropinirole 1 mg tablet 1 mg PO BEDTIME 10/21/22 10/21/22 Unknown History tiotropium bromide 18 mcg capsule 1 cap inhalation DAILY 10/21/22 10/21/22 Unknown History with inhalation device (Spiriva with HandiHaler) tramadol 50 mg tablet 50 mg PO Q6H PRN Pain (Scale Score 10/21/22 10/21/22 Unknown History 4-6) Physical Exam 2 Vital Signs: Vital Signs: Last Vital Signs Temp 97.2 F 10/22/22 07:11 Pulse 76 10/22/22 08:32 Resp 20 10/22/22 08:32 BP 156/70 H 10/22/22 07:11 Pulse Ox 93 10/22/22 07:11 O2 Del Method Room Air 10/22/22 07:11 BMI result Body Mass Index 33.6 Neuro: Other: Somewhat drowsy but able to converse and answer simple questions. Pupils are 2- 3 mm round reactive to light and extraocular muscles are intact. Visual chávez are full. There is no obvious facial asymmetry. Is difficult to say that there is left right-sided asymmetric weakness of upper or lower extremities. Deep tendon reflexes are absent with flexor plantars. Results Labs 10/22/22 07:04 10/22/22 07:04 Labs: Short CBC 10/21/22 10/22/22 Range/Units 12:09 07:04 WBC 4.6 L 3.9 L (4.8-10.8) X10*3/uL Hgb 14.1 13.7 L (14.0-18.0) g/dl Hct 42.7 40.9 L (42.0-52.0) % Plt Count 196 188 (160-400) X10*3/uL BMP 10/21/22 10/22/22 12:09 07:04 Sodium 139 140 Potassium 4.7 4.3 Chloride 106 106 Carbon Dioxide 26 26 BUN 17 H 16 Creatinine 0.92 0.81 Calcium 9.7 9.1 D Liver Function 10/21/22 Range/Units 12:09 Total Bilirubin 0.3 (0.0-1.0) mg/dL Direct Bilirubin 0.1 (0.0-0.5) mg/dL AST 16 (5-37) U/L ALT 20 (0-40) U/L Alkaline Phosphatase 67 (39-117) U/L Albumin 4.1 (3.5-5.0) g/dL Urine 10/21/22 Range/Units 12:09 Urine Color Yellow Urine Appearance Clear Urine pH 6.5 (5.0-9.0) Ur Specific [place] 1.020 (1.005-1.025) Urine Protein Negative (Neg-Trace) mg/dL Urine Glucose (UA) Negative (Negative) mg/dL Head CT revealed moderate cortical atrophy somewhat more pronounced in left hemisphere. No obvious vascular lesion is noted. CTA did not reveal any vascular lesion. Assessment and Plan (1) Transient cerebral ischemia: Status: Acute 72 years old man with complicated underlying neuropsychiatric history with diagnosis of schizophrenia was brought to hospital with new onset of left-sided weakness. He was not a good historian but apparently was back to baseline. Imaging has not reveal any obvious chronic or acute vascular lesion. Differential diagnosis might include transient ischemic attack but it could also B complex migraine or seizure. As far as workup is concerned, maybe an additional EEG can be considered. Otherwise I would recommend baby aspirin daily and continuation of underlying medicines. Time Spent With Patient Time: Total time managing care of this patient today ____ minutes. Procedures Date of Service Date of Service: 10/22/22
--- NOTE | 2022-10-22 11:43 | MHC.CM.PN ---
CM spoke with [facility] Specimen Technician/Susanna @ [phone]. Patient is LTC at this facility and the definite plan is for Patient to return there at time of dc. Patient's home has since been condemned and Guardianship is pending/trial court date is 12/25/2022. Patient's Son and [id number]/Jennifer @ [phone] have been minimally involved (per Susanna). CM will follow.
[2022-10-22] MEDS: Enoxaparin Sodium 40 MG/0.4 ML SYRINGE SUBCUT (16:17)
[2022-10-22 16:27] LABS: Glucose, Whole Blood 122 mg/dL (60-115)
[2022-10-22 19:55] LABS: Glucose, Whole Blood 201 mg/dL (60-115)
[2022-10-22] MEDS: lamoTRIgine 100 MG TABLET 300 MG PO (20:28)
[2022-10-22] MEDS: OLANZapine 10 MG TABLET 30 MG PO (20:28)
[2022-10-22] MEDS: Benztropine Mesylate 1 MG TABLET PO (20:28)
[2022-10-22] MEDS: rOPINIRole HCL 1 MG TABLET PO (20:28)
[2022-10-22] MEDS: traMADoL HCL 50 MG TABLET PO (20:32)
[2022-10-23] VITALS: BP 136/65; PULSE 66; RESP 16; TEMP 36.3; O2SAT 91
[2022-10-23 04:00] VITALS: BP 131/64; PULSE 63; RESP 16; TEMP 36.2; O2SAT 96
[2022-10-23 07:13] VITALS: BP 127/60; PULSE 64; RESP 16; TEMP 36.3; O2SAT 92
[2022-10-23 07:23] LABS: Glucose, Whole Blood 178 mg/dL (60-115)
[2022-10-23] MEDS: Omeprazole 20 MG CAPSULE.DR PO (07:54)
[2022-10-23] MEDS: Insulin Lispro 100 UNIT/ML 3 ML VIAL SUBCUT ×2 (07:54→11:54)
[2022-10-23] MEDS: Aspirin Enteric Coated 81 MG TABLET.DR PO (07:54)
[2022-10-23] MEDS: Benztropine Mesylate 0.5 MG TABLET PO (07:55)
[2022-10-23] MEDS: 0.9 % Sodium Chloride Flush 3 ML SYRINGE IVFLUSH (07:55)
[2022-10-23] MEDS: OLANZapine 5 MG TABLET PO (07:55)
[2022-10-23] MEDS: Metoprolol Succinate ER 25 MG TAB.ER.24H PO (07:55)
[2022-10-23 08:41] VITALS: PULSE 66; RESP 16; O2SAT 92
[2022-10-23 11:17] VITALS: BP 131/65; PULSE 68; RESP 18; TEMP 36.3; O2SAT 95
--- NOTE | 2022-10-23 11:20 | P.DS_ITS ---
DS: Providers Provider Date of Service: 10/23/22 Date of admission: 10/21/22 13:34 Primary care physician: Trung Donnelly MD Consults: 10/21/22 11:22 Consult to Neurology Stat Consulting Provider: [facility] Reason for consultation: stroke Has provider been notified: No 10/21/22 13:36 Consult to Neurology Routine Consulting Provider: Moe Funk Reason for consultation: tia 10/21/22 21:22 Consult for Sitter Routine Reason for consultation: behavioral disturbance DS: Diagnosis Discharge Diagnosis (1) Acute left-sided muscle weakness: Status: Acute DS: Summary Hospital Course Hospital Course: 72-year-old male with history of schizoaffective disorder, bipolar disorder, COPD, restless legs syndrome, hypertension, coronary artery disease, history ascending aortic aneurysm repair, [id number] type 2 diabetes, history of TIA presented to the ED earlier today from [place] at [facility] where he resides for evaluation of new onset left upper and lower extremity weakness and paresthesias. The patient states that he was unable to use the left arm or leg this morning but has now regained functionality. He tells me that nursing staff at the facility also noted left- sided facial droop. Currently there is no slurred speech, facial droop, dysphagia, weakness, paresthesias, visual changes, or dizziness. On arrival, vital stable. Hematology studies unremarkable. Renal function normal, electrolyte levels normal. Troponin undetectable. Urinalysis unremarkable. CXR pending. Head CT negative for any acute intracranial abnormality but does show global loss of parenchymal volume and scattered chronic small vessel changes within the periventricular white matter. Head/neck CTA negative for any acute infarction or hemorrhage. There is no significant stenosis of the cervical carotid or vertebral arteries and no LVO. In the ED, given 325 mg aspirin and 1 L IV NS. ED provider did discuss case with Neurology recommending admission. 72-year-old man treated for likely TIA. Had left extremity weakness and paresthesias that did subsequently resolve pretty soon after admission. MRI was negative for any acute abnormality but did show mild chronic white matter microangiopathy at the and generalized pericardial volume loss. Patient was seen evaluated by Neurology who recommended an EEG which was done and found to be normal. Echocardiogram showed EF of 50%. The consensus would be that patient did have a TIA. Plan will be to continue aspirin and fortunately the patient has no allergy to statin. Diabetes mellitus type 2. Continue medications Hypertension. Continue home medications Coronary artery disease. Continue aspirin and beta-mariano, allergy to statin Restless legs syndrome. Continue Requip COPD. No exacerbation to admission. Continue home inhalers Time Spent with Patient Time attestation: Total time managing care of this patient today ____ minutes. Discharge coordination time: Greater than 30 minutes Quality: Safe Use of Opioids Does Pt have an Active Cancer Diagnosis on the Problem List?: No Quality: Stroke Does the patient have a stroke diagnosis?: No Physical Exam Vital Signs: Vital Signs: Last Vital Signs Temp 97.3 F 10/23/22 11:17 Pulse 68 10/23/22 11:17 Resp 18 10/23/22 11:17 BP 131/65 10/23/22 11:17 Pulse Ox 95 10/23/22 11:17 O2 Del Method Room Air 10/23/22 11:17 BMI result Body Mass Index 33.6 Appearing in no acute distress head is normocephalic atraumatic eyes pupils are PERRLA sclera is anicteric mouth throat mucous membranes are intact and moist neck is supple no lymphadenopathy, no JVD noted lung sounds are clear to auscultation heart regular rate rhythm, clear S1, S2 positive bowel sounds, abdomen is soft, nontender neuro patient is alert x3, no focal deficits DS: Data Data Completed and Pending Labs on day of discharge: Laboratory Results - last 24 hr 10/22/22 10/22/22 10/23/22 16:14 19:38 07:11 POC Glucose 122 H 201 H 178 H Discharge Plan Discharge Anticipated Discharge Date/Time: 10/23/22 11:18 Patient Disposition: Xfer Psychiatric Hosp Discharge Diagnosis: TIA Referrals: [facility] [Other] - 1 Week Trung Donnelly MD [Primary Care Provider] - 1 Week Discharge Medications: Continued metformin 500 mg Tablet 250 mg PO BID acetaminophen 325 mg Tablet 650 mg PO Q4H PRN (Reason: Pain, Mild) benztropine 0.5 mg Tablet 0.5 mg PO DAILY ropinirole 1 mg Tablet 1 mg PO BEDTIME Rx Instructions: administer 1-3 hours before bedtime ipratropium-albuterol 0.5 mg-3 mg(2.5 mg base)/3 mL Solution For Nebulization 3 ml INHALATION Q4H PRN (Reason: Shortness Of Breath) glipizide 10 mg Tablet Extended Release 24hr 10 mg PO DAILY olanzapine [Zyprexa] 5 mg Tablet 5 mg PO Q6H PRN (Reason: Agitation) olanzapine [Zyprexa] 5 mg Tablet 5 mg PO DAILY melatonin 3 mg Tablet 3 mg PO BEDTIME PRN (Reason: Insomnia) tramadol 50 mg Tablet 50 mg PO Q6H PRN (Reason: Pain (Scale Score 4-6)) metformin 1,000 mg Tablet 1,000 mg PO BID diphenhydramine HCl 25 mg Tablet 25 mg PO BEDTIME PRN (Reason: Insomnia) benztropine 1 mg Tablet 1 mg PO BEDTIME aspirin 81 mg Tablet,Chewable 81 mg PO DAILY olanzapine [Zyprexa] 15 mg Tablet 30 mg PO BEDTIME albuterol sulfate 90 mcg/actuation Hfa Aerosol Inhaler 2 puff INHALATION Q4H PRN (Reason: Shortness Of Breath) lamotrigine 100 mg Tablet 300 mg PO BEDTIME Spiriva with HandiHaler 18 mcg Capsule, W/Inhalation Device 1 cap INHALATION DAILY Rx Instructions: puncture 1 cap using device; one dose = 2 inhalations omeprazole 20 mg Tablet,Delayed Release (Dr/Ec) 20 mg PO BID Invega Sustenna 234 mg/1.5 mL Syringe 234 mg IM QMONTH metoprolol succinate 25 mg Tablet Extended Release 24 Hr 25 mg PO DAILY Discharge Orders: Discharge Order (Routine); Ordered 10/23/22 Ordered By: Malka Jovel Diet: Advance to usual diet Activity on Discharge: As tolerated Stand Alone Forms: Patient Portal Discharge page Care Plan Goals: No further episodes Health Concerns: TIA Plan of Treatment: Follow-up with primary care provider as needed Take all medications as prescribed Assessment: See discharge summary
[2022-10-23 11:39] LABS: Glucose, Whole Blood 296 mg/dL (60-115)
--- NOTE | 2022-10-23 12:38 | MHC.CM.PN ---
Patient has been medically cleared for dc today, to return to [facility] at 4 PM, via [facility]. CM confirmed dc details with Rigger Helper/Susanna @ [phone] and stain remover/Adelaide @ [phone] @ [place].
[2022-10-23] MEDS: Enoxaparin Sodium 40 MG/0.4 ML SYRINGE SUBCUT (13:20)
== END 2022-10-23 16:12 ==
LOC: HO.ED 13:50 → HO.EDOVER 13:56 → HO.IMC 10-22 07:03 → HO.EDOVER 10-22 12:53
PROVIDERS: Admitting Provider Physician Assistant; Emergency Provider Student in an Organized Health Care Education/Training Program; PCP Internal Medicine; Visit Provider Nurse Practitioner Acute Care
DX: G81.94 Hemiplegia, unspecified affecting left nondominant side (principal); I10 Essential (primary) hypertension; I25.10 Atherosclerotic heart disease of native coronary artery without angina pectoris; E11.9 Type 2 diabetes mellitus without complications; R20.2 Paresthesia of skin; J44.9 Chronic obstructive pulmonary disease, unspecified; Z86.73 Personal history of transient ischemic attack (TIA), and cerebral infarction without residual deficits; Z86.718 Personal history of other venous thrombosis and embolism; Z79.01 Long term (current) use of anticoagulants; Z79.899 Other long term (current) drug therapy
CPT/HCPCS: 36415; 70450; 70496; 70498; 70551; 71045; 73560; 74018; 80048; 80061; 80076; 81003; 82947; 83036; 84484; 85025; 85610; 85730; 93005; 93306; 94640; 95816; 96360; 96361; 96372; 97161; 97165; 99222; 99284; J1650; Q9957; Q9967

== ENCOUNTER 2022-10-21 13:34 | Outpatient (BNV) | payer OTHER, MEDICAID, SELFPAY | END 2022-10-22 07:00 | PROVIDERS: Admitting Provider Physician Assistant; Emergency Provider Student in an Organized Health Care Education/Training Program; PCP Internal Medicine; Visit Provider Internal Medicine | DX: R94.31 Abnormal electrocardiogram [ECG] [EKG] (principal); G45.9 Transient cerebral ischemic attack, unspecified | CPT/HCPCS: 93306 ==

== ENCOUNTER → 2022-10-21 13:34 | Outpatient (BNV) | payer OTHER, MEDICAID, SELFPAY | PROVIDERS: Admitting Provider Physician Assistant; Emergency Provider Student in an Organized Health Care Education/Training Program; PCP Internal Medicine; Visit Provider Physician Assistant | DX: M62.81 Muscle weakness (generalized) (principal) | CPT/HCPCS: 99223; 99232; 99239 ==

== ENCOUNTER 2023-04-09 10:32 | Emergency (ER) | payer OTHER, MEDICAID, SELFPAY ==
--- NOTE | ~2023-04-09 | CT_ITS ---
EXAMINATION: CT ANGIOGRAM CHEST CLINICAL INFORMATION: Chest pain and dizziness. History of aortic repair. COMPARISON: Previous chest x-ray October 2022 TECHNIQUE: Multiple axial images were obtained through the chest after the administration of 85 mL of Omnipaque 350 intravenous contrast. Extensive vascular post-processing including two-dimensional and three-dimensional reformatted images were created and reviewed on an independent workstation. This CT examination was performed using dose optimization techniques as appropriate, variously including the following: *Automated exposure control *Adjustment of mA and/or kV according to patient size (this includes techniques or standardized protocols for targeted exams where dose is matched to indication/reason for exam; i.e. extremities or head) *Use of iterative reconstruction technique DLP: 671 mGy-cm FINDINGS: There are scattered areas of bronchial wall thickening in the right lung, greatest in the right lower lobe. The secretions seen in the right mainstem bronchus. There is evidence of emphysema. Lungs are otherwise clear. The thoracic aorta is tortuous but normal caliber. Heart does not appear enlarged. There is mild coronary artery calcification. Great vessel origins are patent and normal in caliber. No enlarged hilar or mediastinal lymph nodes. No pleural effusion or pleural thickening. Chest wall mass or axillary nodes. Degenerative changes of the spine. CT/CT angio chest aorta IMPRESSION: Normal caliber thoracic aorta. No aneurysm or dissection. Mild bronchial wall thickening. Emphysema. Fleischner guidelines were followed.
--- NOTE | ~2023-04-09 | CT_ITS ---
EXAMINATION: CT ANGIOGRAM ABDOMEN AND PELVIS CLINICAL INFORMATION: Abdominal pain. History of aneurysm repair 2014 COMPARISON: [facility] October 2022 TECHNIQUE: Multiple axial images were obtained through the abdomen and pelvis following the administration of 85 mL of Omnipaque 350 intravenous contrast. Images were reviewed on a dedicated 3-D workstation. This CT examination was performed using dose optimization techniques as appropriate, variously including the following: *Automated exposure control *Adjustment of mA and/or kV according to patient size (this includes techniques or standardized protocols for targeted exams where dose is matched to indication/reason for exam; i.e. extremities or head) *Use of iterative reconstruction technique DLP: 671 mGy-cm FINDINGS: There is an aorto bicommon iliac endovascular stent. This begins just above the origin of the bilateral renal arteries and SMA and ends in the proximal bilateral common iliac arteries. No evidence of endoleak seen. There is fusiform lower abdominal aortic aneurysm that measures 4 x 4.6 cm in AP and transverse dimension and 6 cm in length. There is a small amount of nonenhancement anteriorly. This may represent thrombus. No precontrast exam available for comparison. Celiac axis, and SMA and CHANA are patent. There are single patent renal arteries. Liver, gallbladder, spleen, pancreas, adrenal glands and kidneys are all unremarkable. Bladder is unremarkable. The prostate gland is slightly enlarged. There is diverticulosis of the colon. Small and large bowel is otherwise unremarkable. The appendix is unremarkable. Stomach is unremarkable. No ascites or adenopathy. No hernia. Degenerative changes of the spine. CT/CT angio abdomen pelvis IMPRESSION: Evidence of endovascular repair of abdominal aortic aneurysm. No endoleak. Fusiform lower abdominal aortic aneurysm measures 4 x 4.6 cm in greatest dimension. There may be a small amount of thrombus within the anterior stent in the lower abdominal aorta. This could be further evaluated with pre and post contrast CTA if clinically indicated. Diverticulosis. Slightly enlarged prostate gland. Fleischner guidelines were followed.
[2023-04-09 10:41] VITALS: BP 117/76; PULSE 70; O2SAT 94
[2023-04-09 10:58] VITALS: BP 122/75; PULSE 69; RESP 18; TEMP 36.7; O2SAT 96; BMI 29.7
[2023-04-09 11:06] VITALS: RESP 18
--- NOTE | 2023-04-09 11:30 | PC.NURSE ---
Addendum entered by Rachel Ag 04/09/23 12:14: no visible facial droop, speech clear, hand grasp strong and equal and no visible hand drift, moving all extremities, abd soft and non-tender and bowel sounds in all 4 quadrents Original Note: pt is alert and oriented x3, skin pwd, respirations even and unlabored, pt reports after breakfast which was around 0930 pt was at the nursing station and felt funny/dizzy/lightheaded/like in a daze, lost his balance and started to fall backwards but the nurse caught him and never fell down, did have lower abd pain that resolved and some chest pain that also resolved, pt currently denies all symptoms, vs stable and ns on the monitor pt is coming from [facility] and staff member is at bedside
--- NOTE | 2023-04-09 11:46 | ECG_ITS ---
Test Reason : DIZZINESS Blood Pressure : / mmHG Vent. Rate : 063 BPM Atrial Rate : 063 BPM P-R Int : 142 ms QRS Dur : 078 ms QT Int : 396 ms P-R-T Axes : 030 -80 051 degrees QTc Int : 405 ms Normal sinus rhythm Left axis deviation Low voltage QRS Inferior-posterior infarct (cited on or before 21-OCT-2022) Abnormal ECG When compared with ECG of 21-OCT-2022 11:24, No significant change was found Referred By: Daily Gandara Electronically Signed By:BILL SALAZAR
[2023-04-09 12:02] LABS: MANUAL DIFF FLAG NO
--- NOTE | 2023-04-09 12:03 | ED_ITS ---
HPI - Dizziness General Chief Complaint: Dizziness Stated Complaint: DIZZY W/STANDING,RLQ PAIN FROM [place] PER Time Seen by Provider: 04/09/23 11:19 Source: patient and old records reviewed Mode of arrival: EMS Limitations: no limitations History of Present Illness HPI Narrative: 73 yo male with PMH of bipolar disorder, schizoaffective, COPD, HTN, CAD, restless leg syndrome, hx of ascending aortic aneurysm repair, NIDDM, TIA, not on blood thinners here with c/o eating a big breakfast around 8am - 2 cups of coffee, 2 helpings of oatmeal, 2 servings of eggs. Afterwards had a large cramp in lower abdomen that passed quickly then he felt another across lower ribs lasting less than a minute but became very worried. He went to get up and tell staff felt very dizzy and had to be caught by staff at that time HR was 130s. He resolved quickly but was sent to be checked out. MD elicited complaint: dizziness (abdominal / chest pain) Onset (ago): hour(s) (930am) Timing: sudden onset Severity: moderate Description: lightheadedness Context: change in body position History of similar symptoms: No Exacerbating factors: other (started after brief abdominal and chest pain) Relieving factors: remaining still Associated symptoms: chest pain and other (abdominal pain) Related Data Home Medications Medication Instructions Recorded Confirmed acetaminophen 325 mg tablet 650 mg PO Q6H PRN Pain, Moderate 10/21/22 04/09/23 albuterol sulfate 90 mcg/actuation 2 puff inhalation Q4H PRN 10/21/22 04/09/23 aerosol inhaler Shortness Of Breath benztropine 0.5 mg tablet 0.5 mg PO DAILY 10/21/22 04/09/23 benztropine 1 mg tablet 1 mg PO BEDTIME 10/21/22 04/09/23 diphenhydramine HCl 25 mg tablet 25 mg PO BEDTIME PRN Insomnia 10/21/22 04/09/23 glipizide 10 mg tablet, extended 10 mg PO DAILY 10/21/22 04/09/23 release 24 hr ipratropium 0.5 mg-albuterol 3 mg 3 ml inhalation Q4H PRN Shortness 10/21/22 04/09/23 (2.5 mg base)/3 mL nebulization Of Breath soln lamotrigine 100 mg tablet 300 mg PO BEDTIME 10/21/22 04/09/23 metformin 1,000 mg tablet 1,000 mg PO BID 10/21/22 04/09/23 metformin 500 mg tablet 250 mg PO BID 10/21/22 04/09/23 metoprolol succinate 25 mg 50 mg PO BEDTIME 10/21/22 04/09/23 tablet,extended release 24 hr olanzapine 15 mg tablet (Zyprexa) 25 mg PO BEDTIME 10/21/22 04/09/23 olanzapine 5 mg tablet (Zyprexa) 5 mg PO DAILY 10/21/22 04/09/23 olanzapine 5 mg tablet (Zyprexa) 5 mg PO Q6H PRN Agitation 10/21/22 04/09/23 omeprazole 20 mg tablet,delayed 20 mg PO BID 10/21/22 04/09/23 release ropinirole 1 mg tablet 2 mg PO BEDTIME 10/21/22 04/09/23 tramadol 50 mg tablet 50 mg PO BEDTIME PRN Pain (Scale 10/21/22 04/09/23 Score 4-6) acetaminophen 325 mg tablet 325 mg PO Q4H PRN Pain, Mild 04/09/23 04/09/23 acetaminophen 325 mg tablet 650 mg PO BEDTIME 04/09/23 04/09/23 alogliptin 12.5 mg tablet (Nesina) 12.5 mg PO DAILY 04/09/23 04/09/23 aspirin 81 mg tablet,delayed 81 mg PO DAILY 04/09/23 04/09/23 release diphenhydramine HCl 50 mg/mL 25 mg IM Q4H PRN Agitation 04/09/23 04/09/23 injection solution lisinopril 2.5 mg tablet 2.5 mg PO DAILY 04/09/23 04/09/23 magnesium hydroxide 400 mg/5 mL 30 ml PO BEDTIME PRN Constipation 04/09/23 04/09/23 oral suspension (Milk of Magnesia) paliperidone 6 mg tablet,extended 6 mg PO BID 04/09/23 04/09/23 release 24 hr (Invega) polyethylene glycol 3350 17 gram 17 g PO DAILY PRN Constipation 04/09/23 04/09/23 oral powder packet Allergies Allergy/AdvReac Type Severity Reaction Status Date / Time atorvastatin Allergy Unknown Verified 04/09/23 11:05 gabapentin Allergy Unknown Verified 04/09/23 11:05 nicotine Allergy Unknown Verified 04/09/23 11:05 Review of Systems 2 Review of Systems: Constitutional : No Weight loss, No Fever, No Chills ENT/Mouth : No sore throat, No Rhinorrhea Eyes: No Swelling, No Redness Cardiovascular : pos Chest Pain, No SOB, NoEdema Respiratory : No Cough, No Sputum, No Wheezing Gastrointestinal : no Nausea, no Vomiting, no Diarrhea, positive abdominal Pain, No Hematochezia, No Melena Genitourinary : No Dysuria, No Urinary Frequency, No Hematuria, No Urgency Musculoskeletal : No joint pain, No Myalgias, No Joint Swelling Skin : No Skin Lesions, No rash Neuro : No Weakness, No Numbness, pos Dizziness, No Headache Psych : No Anxiety/Panic, No Depression Heme/Lymph: No Bruising, No Lymphadenopathy Endocrine : No Polyuria, No Polydipsia All other systems reviewed and are negative. [facility] Past Medical History Attestation statement: The following information was validated with the patient. Source: old records reviewed Medical History History of TIA (transient ischemic attack) Type 2 diabetes mellitus Hypertension Restless leg syndrome Coronary artery disease COPD (chronic obstructive pulmonary disease) Bipolar disorder Schizoaffective disorder Surgical History History of aortic aneurysm repair Social History Social History Household Members: Other Household Members Other:: From [facility] Housing: Other Housing Other:: [facility] facility, [place] Unable to assess alcohol history related to: Unknown Comment: 1:1 sitter Patient Tobacco Use Status: Tobacco use Unknown Smoked in Last 30 Days: No Advance Directives: No Advance Directives Information Provided: No service: No Physical Exam 2 Vital Signs: Vital Signs: Last Vital Signs Temp 98.1 F 04/09/23 14:51 Pulse 64 04/09/23 14:51 Resp 18 04/09/23 14:51 BP 120/54 L 04/09/23 14:51 Pulse Ox 95 04/09/23 14:51 O2 Del Method Room Air 04/09/23 14:51 BMI result Body Mass Index 29.7 Appearance: Alert. Oriented X3. No acute distress. Eyes: Pupils equal, round and reactive to light. ENT: Pharynx normal. Neck: Normal inspection. Neck supple. CVS: Normal heart rate and rhythm. Pulses normal. Respiratory: No respiratory distress. Breath sounds normal. Abdomen: Soft and nontender. Skin: Skin warm and dry. Normal skin color. Normal skin turgor. Extremities: No lower extremity edema. No calf ttp Neuro: Oriented X 3. No motor deficit. No sensory deficit. Medications Administered Discontinued Medications Generic Name Dose Route Start Last Admin Trade Name Lauri PRN Reason Stop Dose Admin Iohexol 100 ml 04/09/23 13:13 04/09/23 13:14 Iohexol 350 Mg/Ml 100 Ml Infus..Btl IV 04/09/23 13:14 85 ml ONCE ONE Administration Medical Decision Making Medical Decision Making [facility] Narrative: 73 yo male with PMH of bipolar disorder, schizoaffective, COPD, HTN, CAD, restless leg syndrome, hx of ascending aortic aneurysm repair, NIDDM, TIA, not on blood thinners here with episodes of lower abdominal pain and then radiated to chest that resolved quickly but then developed dizziness and near syncope. He feels better now no further pain. HR at that time was 130s. He could have had gas pains causing near syncope. Given age and risk factors, labs, EKG, troponin x 2, has no hypoxia or signs of DVT to suggest VTE, given aortic repair and wandering pain with near syncope will work up with CTA - has been there 1.5 years and this presentation is unusual per staff. Differential Diagnosis Differential Diagnoses: The differential diagnosis associated with the presentation includes aortic pathology, near syncope, gas pain, atypical chest pain Admission/Observation Consideration of admission/observation: Escalation of care including admission/observation considered feels better, no dissection, no endovascular leak, distal pulses intact small thrombus but nothing occlusive can follow up with outpatient vascular already on aspirin daily trop flat x 2 Lab Data [facility] Lab Attestation statement: I reviewed the patient's lab results. 04/09/23 11:52 04/09/23 11:52 Labs: Lab Results 04/09/23 Range/Units 11:52 WBC 5.2 (4.8-10.8) X10*3/uL RBC 4.86 (4.60-5.80) X10*6/uL Hgb 14.5 (14.0-18.0) g/dl Hct 42.6 (42.0-52.0) % MCV 87.7 (80.0-98.0) fL MCH 29.8 (27.0-33.0) pg MCHC 34.0 (31.0-36.0) g/dl RDW 13.9 (11.0-16.0) % Plt Count 210 (160-400) X10*3/uL MPV 9.7 (9.4-12.4) fL Immature Gran % (Auto) 0.6 H (0.0-0.4) % Neut % (Auto) 66.9 (45-73) % Lymph % (Auto) 21.7 (20-40) % Levy % (Auto) 8.5 (2-11) % Eos % (Auto) 1.7 (0-4) % Baso % (Auto) 0.6 (0-2) % Lymph # (Auto) 1.1 L (1.2-4.9) X10*3/uL Levy # (Auto) 0.4 (0.1-1.2) X10*3/uL Eos # (Auto) 0.1 (0.0-0.4) X10*3/uL Baso # (Auto) 0.0 (0.0-0.2) X10*3/uL Abs Immat Gran (auto) 0.03 (0.00-0.03) X10*3/uL Absolute Neuts (auto) 3.5 (2.0-8.3) x10*3/uL Absolute Nucleated RBC 0.000 (0.0-0.012) X10*3/uL Nucleated RBC % (auto) 0.0 (0.0-0.2) /100WBC Sodium 138 (135-145) mmol/L Potassium 4.6 (3.3-5.1) mmol/L Chloride 104 (96-108) mmol/L Carbon Dioxide 27 (22-29) mmol/L Anion Gap 12 (12-20) BUN 19 H (9-16) mg/dL Creatinine 0.84 (0.5-1.4) mg/dL Estim Creat Clear Calc 88.7 Estimated GFR > 60 Random Glucose 149 H (60-115) mg/dL Calcium 10.0 D (8.4-10.2) mg/dL Magnesium 2.1 (1.6-2.6) mg/dL Total Bilirubin 0.4 (0.0-1.0) mg/dL Direct Bilirubin 0.1 (0.0-0.5) mg/dL AST 18 (5-37) U/L ALT 21 (0-40) U/L Alkaline Phosphatase 68 (39-117) U/L Troponin I High Sens < 2.7 (<3.5-35.0) ng/L Total Protein 7.0 (6.5-8.0) g/dL Albumin 4.4 (3.5-5.0) g/dL Lipase 43 (8-78) U/L Urine Color Yellow Urine Appearance Clear Urine pH 6.5 (5.0-9.0) Ur Specific [place] <= 1.005 (1.005-1.025) Urine Protein Negative (Neg-Trace) mg/dL Urine Glucose (UA) Negative (Negative) mg/dL Urine Ketones Negative (Negative) mg/dL Urine Blood Negative (Negative) Urine Nitrite Negative (Negative) Ur Leukocyte Esterase Negative (Negative) Urine RBC 0-2 (0-2) /HPF Urine WBC 0-5 (0-5) /HPF Ur Squamous Epith Cells 0-2 (0-2) /HPF Urine Bacteria None Seen (None Seen) Hyaline Casts 0-2 (0-2) /LPF Independent Interpretation I performed an independent interpretation of an: EKG and CT Scan (no leak) Interpretation: Rate: 63 Rhythm: NSR [place]: left Normal P waves. Normal MAGEN. Normal QRS complex. ST T wave : no CAROLEE qTC: 405 prior studies: no acute ischemia q waves inf leads no sig change from prior The study has been interpreted contemporaneously by me. . Radiology Impression Discussion of test interpretation with radiology: I have reviewed the radiologist's reading. Independent Historian Clinical information obtained from an independent historian. History obtained from or confirmed by: EMS External Record Review External record reviewed: Inpatient record Discharge Plan Discharge Clinical Impression: Dizziness, Bilateral lower abdominal pain Patient Disposition: Home, Self-Care Instructions: Abdominal Pain (ED), Dizziness (ED), Chest Pain (ED) Additional Instructions: labs normal, CT scan of aorta in chest normal, EKG and troponin tests for heart normal x 2 CT scan of aorta in abdomen shows no bleeding or tearing of blood vessel small thrombus which is not causing obstruction or occlusion can follow up with his vascular surgeon in the next couple of weeks. return for any worsening pain, dizziness, confusion or any other concerns. There is an aorto bicommon iliac endovascular stent. This begins just above the origin of the bilateral renal arteries and SMA and ends in the proximal bilateral common iliac arteries. No evidence of endoleak seen. There is fusiform lower abdominal aortic aneurysm that measures 4 x 4.6 cm in AP and transverse dimension and 6 cm in length. There is a small amount of nonenhancement anteriorly. This may represent thrombus. No precontrast exam available for comparison. Celiac axis, and SMA and CHANA are patent. There are single patent renal arteries. Prescriptions: No Action acetaminophen 325 mg Tablet 650 mg PO BEDTIME acetaminophen 325 mg Tablet 325 mg PO Q4H PRN (Reason: Pain, Mild) aspirin 81 mg Tablet,Delayed Release (Dr/Ec) 81 mg PO DAILY diphenhydramine HCl 50 mg/mL Solution 25 mg IM Q4H PRN (Reason: Agitation) paliperidone [Invega] 6 mg Tablet Extended Release 24 Hr 6 mg PO BID alogliptin [Nesina] 12.5 mg Tablet 12.5 mg PO DAILY polyethylene glycol 3350 17 gram Powder In Packet 17 g PO DAILY PRN (Reason: Constipation) lisinopril 2.5 mg Tablet 2.5 mg PO DAILY magnesium hydroxide [Milk of Magnesia] 400 mg/5 mL Suspension 30 ml PO BEDTIME PRN (Reason: Constipation) metformin 500 mg Tablet 250 mg PO BID acetaminophen 325 mg Tablet 650 mg PO Q6H PRN (Reason: Pain, Moderate) benztropine 0.5 mg Tablet 0.5 mg PO DAILY ropinirole 1 mg Tablet 2 mg PO BEDTIME Rx Instructions: administer 1-3 hours before bedtime ipratropium-albuterol 0.5 mg-3 mg(2.5 mg base)/3 mL Solution For Nebulization 3 ml INHALATION Q4H PRN (Reason: Shortness Of Breath) glipizide 10 mg Tablet Extended Release 24hr 10 mg PO DAILY olanzapine [Zyprexa] 5 mg Tablet 5 mg PO Q6H PRN (Reason: Agitation) olanzapine [Zyprexa] 5 mg Tablet 5 mg PO DAILY tramadol 50 mg Tablet 50 mg PO BEDTIME PRN (Reason: Pain (Scale Score 4-6)) metformin 1,000 mg Tablet 1,000 mg PO BID diphenhydramine HCl 25 mg Tablet 25 mg PO BEDTIME PRN (Reason: Insomnia) benztropine 1 mg Tablet 1 mg PO BEDTIME olanzapine [Zyprexa] 15 mg Tablet 25 mg PO BEDTIME albuterol sulfate 90 mcg/actuation Hfa Aerosol Inhaler 2 puff INHALATION Q4H PRN (Reason: Shortness Of Breath) lamotrigine 100 mg Tablet 300 mg PO BEDTIME omeprazole 20 mg Tablet,Delayed Release (Dr/Ec) 20 mg PO BID metoprolol succinate 25 mg Tablet Extended Release 24 Hr 50 mg PO BEDTIME
[2023-04-09 12:05] LABS: Basophils Percent Auto 0.6 % (0-2); Eosinophils Absolute Auto 0.1 X10*3/uL (0.0-0.4); Eosinophils Percent Auto 1.7 % (0-4); Hematocrit 42.6 % (42.0-52.0); Hemoglobin 14.5 g/dl (14.0-18.0); Imm Gran Abs Auto 0.03 X10*3/uL (0.00-0.03); Imm Gran Pct Auto 0.6 % (0.0-0.4); Lymphocytes Absolute Auto 1.1 X10*3/uL (1.2-4.9); Lymphocytes Percent Auto 21.7 % (20-40); Mean Corpuscular Hemoglobin 29.8 pg (27.0-33.0); Mean Corpuscular Volume 87.7 fL (80.0-98.0); Mean Platelet Volume 9.7 fL (9.4-12.4); Monocytes Absolute Auto 0.4 X10*3/uL (0.1-1.2); Monocytes Percent Auto 8.5 % (2-11); Neutrophils Absolute Auto 3.5 x10*3/uL (2.0-8.3); Neutrophils Percent Auto 66.9 % (45-73); Platelet Count 210 X10*3/uL (160-400); Red Blood Count 4.86 X10*6/uL (4.60-5.80); Red Cell Distribution Width 13.9 % (11.0-16.0); White Blood Count 5.2 X10*3/uL (4.8-10.8)
[2023-04-09 12:06] LABS: Appearance Urine Clear; Color Urine Yellow; Glucose Urine UA Negative (Negative); Leukocyte Esterase Urine Negative (Negative); Nitrite Urine Negative (Negative); PH 6.5 (5.0-9.0); Specific Gravity - Urine <= 1.005 (1.005-1.025); Urine Blood Negative (Negative); Urine Ketones Negative (Negative); Urine Protein Negative (Neg-Trace)
[2023-04-09 12:11] LABS: Bacteria Urine None Seen (None Seen); Hyaline Casts Urine 0-2 /LPF (0-2); RBC Urine 0-2 /HPF (0-2); Squamous Epithelial Cell Urine 0-2 /HPF (0-2); WBC Urine 0-5 /HPF (0-5)
[2023-04-09 12:24] LABS: Alanine Aminotransferase 21 U/L (0-40); Albumin Level 4.4 g/dL (3.5-5.0); Alkaline Phosphatase 68 U/L (39-117); Anion Gap 12 (12-20); Aspartate Amino Transferase 18 U/L (5-37); Bilirubin Direct 0.1 mg/dL (0.0-0.5); Bilirubin Total 0.4 mg/dL (0.0-1.0); Blood Urea Nitrogen 19 mg/dL (9-16); Carbon Dioxide 27 mmol/L (22-29); Chloride 104 mmol/L (96-108); Creatinine Clr Calc Pharmacy 88.7; Estimated Glomerular Filt Rate > 60; Glucose Random 149 mg/dL (60-115); Lipase 43 U/L (8-78); Magnesium 2.1 mg/dL (1.6-2.6); Potassium 4.6 mmol/L (3.3-5.1); Sodium 138 mmol/L (135-145)
[2023-04-09 12:31] LABS: Troponin-I High Sensitivity < 2.7 ng/L (<3.5-35.0)
[2023-04-09] MEDS: iohexoL 350 MG/ML 100 ML INFUS..BTL IV (13:14)
[2023-04-09 14:51] VITALS: BP 120/54; PULSE 64; RESP 18; TEMP 36.7; O2SAT 95
--- NOTE | 2023-04-09 14:59 | PC.NURSE ---
pt resting comfortably on the stretcher, respirations even and unlabored, denies pain, ns on the monitor
--- NOTE | 2023-04-09 15:02 | PHA.MEDREC ---
Pharmacy Consult ? Medication Reconciliation Pharmacy has completed the medication reconciliation. Called and spoke to nurse Ya at [facility] to verify patient's medication list. Patient is not on any inhalers, only albuterol neb solution PRN and rarely duoneb PRN. Metformin dose is 1250 mg bid, 3 different doses of olanzapine tablets (pt no longer uses invega injection) and 3 different doses of APAP for different pain scales and time.
[2023-04-09 15:28] LABS: Troponin-I High Sensitivity < 2.7 ng/L (<3.5-35.0)
--- NOTE | 2023-04-09 16:46 | PC.NURSE ---
report given to Meagan rojo at [facility]
== END 2023-04-09 16:47 | disposition home or self-care (01) ==
PROVIDERS: Emergency Provider Emergency Medicine
DX: R42 Dizziness and giddiness (principal); R10.32 Left lower quadrant pain; R10.31 Right lower quadrant pain; E11.9 Type 2 diabetes mellitus without complications; I10 Essential (primary) hypertension; J44.9 Chronic obstructive pulmonary disease, unspecified; Z86.73 Personal history of transient ischemic attack (TIA), and cerebral infarction without residual deficits; Z79.84 Long term (current) use of oral hypoglycemic drugs; Z79.82 Long term (current) use of aspirin; Z79.899 Other long term (current) drug therapy
CPT/HCPCS: 36415; 71275; 74174; 80048; 80076; 81001; 83690; 83735; 84484; 85025; 93005; 99284; Q9967

== ENCOUNTER → 2023-04-09 11:46 | Outpatient (BNV) | payer OTHER, MEDICAID, SELFPAY | PROVIDERS: Emergency Provider Emergency Medicine; Visit Provider Internal Medicine | DX: I44.4 Left anterior fascicular block (principal) | CPT/HCPCS: 93010 ==

== ENCOUNTER 2023-09-11 14:56 | Emergency (ER) | payer MEDICARE, MEDICAID, SELFPAY ==
[2023-09-11 15:20] VITALS: BP 140/60; BP 160/70; PULSE 93; PULSE 98; RESP 16; TEMP 36.3; O2SAT 94; O2SAT 96; BMI 34.3
[2023-09-11 15:25] VITALS: RESP 16
--- NOTE | 2023-09-11 15:51 | ED.PSYCH ---
HPI - Psych General Chief Complaint: Behavioral Concerns Stated Complaint: SECTION 12 Time Seen by Provider: 09/11/23 15:50 Source: patient Mode of arrival: ambulatory Limitations: no limitations History of Present Illness HPI Narrative: 73-year-old male coming from a retirement patient was found to be agitated was wondering has been trying to feed the birds signed. Patient has past medical history significant for asthma diabetes is on alogliptin mood disorder schizoaffective disorder bipolar disorder COPD restless legs hypertension coronary artery disease history of a ascending aortic aneurysm repair history of UTI long-term care resident. Who presents to the emergency department for the above-stated reason being agitated police had to be called patient is calm and cooperative at this time. MD complaint: anxiety and other Related Data Home Medications ?Medication ?Instructions ?Recorded ?Confirmed acetaminophen 325 mg tablet 650 mg PO Q6H PRN Pain, Moderate 10/21/22 04/09/23 albuterol sulfate 90 mcg/actuation 2 puff inhalation Q4H PRN 10/21/22 04/09/23 aerosol inhaler Shortness Of Breath benztropine 0.5 mg tablet 0.5 mg PO DAILY 10/21/22 04/09/23 benztropine 1 mg tablet 1 mg PO BEDTIME 10/21/22 04/09/23 diphenhydramine HCl 25 mg tablet 25 mg PO BEDTIME PRN Insomnia 10/21/22 04/09/23 glipizide 10 mg tablet, extended 10 mg PO DAILY 10/21/22 04/09/23 release 24 hr ipratropium 0.5 mg-albuterol 3 mg 3 ml inhalation Q4H PRN Shortness 10/21/22 04/09/23 (2.5 mg base)/3 mL nebulization Of Breath soln lamotrigine 100 mg tablet 300 mg PO BEDTIME 10/21/22 04/09/23 metformin 1,000 mg tablet 1,000 mg PO BID 10/21/22 04/09/23 metformin 500 mg tablet 250 mg PO BID 10/21/22 04/09/23 metoprolol succinate 25 mg 50 mg PO BEDTIME 10/21/22 04/09/23 tablet,extended release 24 hr olanzapine 15 mg tablet (Zyprexa) 25 mg PO BEDTIME 10/21/22 04/09/23 olanzapine 5 mg tablet (Zyprexa) 5 mg PO DAILY 10/21/22 04/09/23 olanzapine 5 mg tablet (Zyprexa) 5 mg PO Q6H PRN Agitation 10/21/22 04/09/23 omeprazole 20 mg tablet,delayed 20 mg PO BID 10/21/22 04/09/23 release ropinirole 1 mg tablet 2 mg PO BEDTIME 10/21/22 04/09/23 tramadol 50 mg tablet 50 mg PO BEDTIME PRN Pain (Scale 10/21/22 04/09/23 Score 4-6) acetaminophen 325 mg tablet 325 mg PO Q4H PRN Pain, Mild 04/09/23 04/09/23 acetaminophen 325 mg tablet 650 mg PO BEDTIME 04/09/23 04/09/23 alogliptin 12.5 mg tablet (Nesina) 12.5 mg PO DAILY 04/09/23 04/09/23 aspirin 81 mg tablet,delayed 81 mg PO DAILY 04/09/23 04/09/23 release diphenhydramine HCl 50 mg/mL 25 mg IM Q4H PRN Agitation 04/09/23 04/09/23 injection solution lisinopril 2.5 mg tablet 2.5 mg PO DAILY 04/09/23 04/09/23 magnesium hydroxide 400 mg/5 mL 30 ml PO BEDTIME PRN Constipation 04/09/23 04/09/23 oral suspension (Milk of Magnesia) paliperidone 6 mg tablet,extended 6 mg PO BID 04/09/23 04/09/23 release 24 hr (Invega) polyethylene glycol 3350 17 gram 17 g PO DAILY PRN Constipation 04/09/23 04/09/23 oral powder packet Allergies Allergy/AdvReac Type Severity Reaction Status Date / Time atorvastatin Allergy Unknown Verified 09/11/23 15:22 gabapentin Allergy Unknown Verified 09/11/23 15:22 nicotine Allergy Unknown Verified 09/11/23 15:22 Review of Systems Review of Systems: Review of systems: General: Patient denies any fever chills recent illness or falls Musculoskeletal: Denies back pain or body aches or other injuries HEENT: denies headache, runny nose, ear pain Respiratory: denies shortness of breath, cough Cardiovascular: no chest pain or palpitations : denies dysuria, frequency Abdomen: no nausea vomiting denies abdominal pain Extremities: no swelling, no pain Skin: no diaphoresis Yes all other systems are reviewed and are negative [facility] Past Medical History Medical History History of TIA (transient ischemic attack) Type 2 diabetes mellitus Hypertension Restless leg syndrome Coronary artery disease COPD (chronic obstructive pulmonary disease) Bipolar disorder Schizoaffective disorder Surgical History History of aortic aneurysm repair Social History Social History Household Members: Other Household Members Other:: From [facility] Housing: Other Housing Other:: [facility] facility, [place] Unable to assess alcohol history related to: Unknown Comment: 1:1 sitter Patient Tobacco Use Status: Tobacco use Unknown Smoked in Last 30 Days: Yes Use of substances other than those prescribed or required for medical reasons: No service: No Physical Exam Vital Signs: Vital Signs: Last Vital Signs Temp 97.3 F 09/11/23 15:20 Pulse 93 09/11/23 15:20 Resp 16 09/11/23 15:25 BP 140/60 H 09/11/23 15:20 Pulse Ox 94 09/11/23 15:20 O2 Del Method Room Air 09/11/23 15:20 BMI result Body Mass Index 34.3 Neurological exam: CN II- XII tested. Patient is alert and oriented to person place and time. Patient has no dysphagia or dysarthia, denies good vision in all four vision chávez no nystagmus on exam, good strength to upper and lower extremities with normal reflexes to brachioradialis, wrist, patella and achilles. Negative romberg, good finger to nose and heel to crowley. General: Well-appearing well-nourished in no signs of distress HEENT: Normocephalic atraumatic Neck: No signs of JVD, no masses no tenderness or lymphadenopathy Cardiovascular: Regular rate and rhythm Respiratory: Clear to auscultation bilaterally Abdomen: Soft nontender no masses Extremities: Normal pedal pulses no signs of edema Skin: Dry warm no rashes Back: No tenderness full ROM Medical Decision Making Medical Decision Making MDM Narrative: He has been taking his medications he was just agitated with female staff we did call over there and they state that the patient needs to go inpatient or have med adjustment who is here concerned about behavior but all the fevers soft. Differential Diagnosis Differential Diagnoses: The differential diagnosis associated with the presentation includes Agitation now resolved medication effect Admission/Observation Consideration of admission/observation: Escalation of care including admission/observation considered Consult Healthcare Provider Management of the patient was discussed with: Behavioral Health Provider Lab Data [facility] Lab Attestation statement: I reviewed the patient's lab results. Discharge Plan Discharge Clinical Impression: Agitation Patient Disposition: Home, Self-Care Additional Instructions: You were seen today to get agitated at your long-term care facility. Your calm cooperative at the time he got here. If you have any other concerns please do not hesitate to come back to the emergency department. Prescriptions: No Action acetaminophen 325 mg Tablet 650 mg PO BEDTIME acetaminophen 325 mg Tablet 325 mg PO Q4H PRN (Reason: Pain, Mild) aspirin 81 mg Tablet,Delayed Release (Dr/Ec) 81 mg PO DAILY diphenhydramine HCl 50 mg/mL Solution 25 mg IM Q4H PRN (Reason: Agitation) paliperidone [Invega] 6 mg Tablet Extended Release 24 Hr 6 mg PO BID alogliptin [Nesina] 12.5 mg Tablet 12.5 mg PO DAILY polyethylene glycol 3350 17 gram Powder In Packet 17 g PO DAILY PRN (Reason: Constipation) lisinopril 2.5 mg Tablet 2.5 mg PO DAILY magnesium hydroxide [Milk of Magnesia] 400 mg/5 mL Suspension 30 ml PO BEDTIME PRN (Reason: Constipation) metformin 500 mg Tablet 250 mg PO BID acetaminophen 325 mg Tablet 650 mg PO Q6H PRN (Reason: Pain, Moderate) benztropine 0.5 mg Tablet 0.5 mg PO DAILY ropinirole 1 mg Tablet 2 mg PO BEDTIME Rx Instructions: administer 1-3 hours before bedtime ipratropium-albuterol 0.5 mg-3 mg(2.5 mg base)/3 mL Solution For Nebulization 3 ml INHALATION Q4H PRN (Reason: Shortness Of Breath) glipizide 10 mg Tablet Extended Release 24hr 10 mg PO DAILY olanzapine [Zyprexa] 5 mg Tablet 5 mg PO Q6H PRN (Reason: Agitation) olanzapine [Zyprexa] 5 mg Tablet 5 mg PO DAILY tramadol 50 mg Tablet 50 mg PO BEDTIME PRN (Reason: Pain (Scale Score 4-6)) metformin 1,000 mg Tablet 1,000 mg PO BID diphenhydramine HCl 25 mg Tablet 25 mg PO BEDTIME PRN (Reason: Insomnia) benztropine 1 mg Tablet 1 mg PO BEDTIME olanzapine [Zyprexa] 15 mg Tablet 25 mg PO BEDTIME albuterol sulfate 90 mcg/actuation Hfa Aerosol Inhaler 2 puff INHALATION Q4H PRN (Reason: Shortness Of Breath) lamotrigine 100 mg Tablet 300 mg PO BEDTIME omeprazole 20 mg Tablet,Delayed Release (Dr/Ec) 20 mg PO BID metoprolol succinate 25 mg Tablet Extended Release 24 Hr 50 mg PO BEDTIME Print Language: Irish
--- NOTE | 2023-09-11 15:55 | PC.NURSE ---
Jeromy is coming in today from [facility] on a S12a due to increased aggression at the facility. Patient reports that he was going out to look at the birds on the patio and he went to far away, turned around and the medical technologist chief and ambulance were there . Patient denies verbal escalation, is extremely calm and cooperative here in the pod, currently listening to country music pleasantly singing along. This RN spoke with staff at [facility] who stated that he has been having periods of aggression, directed towards females
[2023-09-11 16:42] LABS: MANUAL DIFF FLAG NO
[2023-09-11 16:43] LABS: Basophils Percent Auto 0.4 % (0-2); Eosinophils Absolute Auto 0.1 X10*3/uL (0.0-0.4); Eosinophils Percent Auto 1.3 % (0-4); Hemoglobin 13.7 g/dl (14.0-18.0); Imm Gran Abs Auto 0.03 X10*3/uL (0.00-0.03); Imm Gran Pct Auto 0.4 % (0.0-0.4); Lymphocytes Absolute Auto 0.9 X10*3/uL (1.2-4.9); Lymphocytes Percent Auto 13.5 % (20-40); Mean Corpuscular HGB Conc 35.1 g/dl (31.0-36.0); Mean Corpuscular Hemoglobin 29.8 pg (27.0-33.0); Mean Corpuscular Volume 84.8 fL (80.0-98.0); Mean Platelet Volume 8.9 fL (9.4-12.4); Monocytes Absolute Auto 0.5 X10*3/uL (0.1-1.2); Monocytes Percent Auto 7.9 % (2-11); Neutrophils Absolute Auto 5.2 x10*3/uL (2.0-8.3); Neutrophils Percent Auto 76.5 % (45-73); Platelet Count 223 X10*3/uL (160-400); Red Cell Distribution Width 13.7 % (11.0-16.0); White Blood Count 6.8 X10*3/uL (4.8-10.8)
[2023-09-11 16:45] LABS: Appearance Urine Clear; Color Urine Yellow; Glucose Urine UA Negative (Negative); Leukocyte Esterase Urine Negative (Negative); Nitrite Urine Negative (Negative); PH 5.5 (5.0-9.0); Urine Blood Negative (Negative); Urine Ketones Negative (Negative); Urine Protein Negative (Neg-Trace)
[2023-09-11 17:37] LABS: Anion Gap 14 (12-20); Blood Urea Nitrogen 14 mg/dL (9-16); Calcium 9.4 mg/dL (8.4-10.2); Carbon Dioxide 21 mmol/L (22-29); Chloride 99 mmol/L (96-108); Creatinine Clr Calc Pharmacy 75.6; Estimated Glomerular Filt Rate > 60; Glucose Random 138 mg/dL (60-115); Potassium 4.6 mmol/L (3.3-5.1); Sodium 129 mmol/L (135-145)
--- NOTE | 2023-09-11 17:45 | PC.NURSE ---
patient continues to be calm and pleasant, offering no complaints to this RN. Patient is aware of plan of care to go back to [facility]
[2023-09-11 20:57] VITALS: BP 158/79; PULSE 74; RESP 16; TEMP 36.2; O2SAT 96
== END 2023-09-11 21:55 | disposition home or self-care (01) ==
PROVIDERS: Emergency Provider Student in an Organized Health Care Education/Training Program; PCP Emergency Medicine
DX: R45.1 Restlessness and agitation (principal); E11.9 Type 2 diabetes mellitus without complications; I10 Essential (primary) hypertension; J44.9 Chronic obstructive pulmonary disease, unspecified; F41.9 Anxiety disorder, unspecified; F39 Unspecified mood [affective] disorder; F25.0 Schizoaffective disorder, bipolar type; Z87.440 Personal history of urinary (tract) infections; Z79.84 Long term (current) use of oral hypoglycemic drugs; Z79.899 Other long term (current) drug therapy; Z79.82 Long term (current) use of aspirin; Z86.73 Personal history of transient ischemic attack (TIA), and cerebral infarction without residual deficits
CPT/HCPCS: 36415; 80048; 81003; 85025; 99284

== ENCOUNTER 2024-07-07 07:46 | Inpatient (IN) | payer MEDICARE, MEDICAID, SELFPAY ==
--- NOTE | ~2024-07-07 | XR_ITS ---
EXAMINATION: XR CHEST CLINICAL INFORMATION: Stroke Protocol COMPARISON: 10/21/2022. TECHNIQUE: Frontal view of the chest was obtained. FINDINGS: The cardiac, hilar, and mediastinal contours are normal. Aortic mural calcifications. The lungs are mildly hyperaerated, however clear bilaterally. No pneumothorax or effusion. No focal osseous or soft tissue abnormality. Mild degenerative changes in the shoulder joints and throughout the spine. XR/XR chest 1V IMPRESSION: No active pulmonary disease. Electronically signed by: Ángel King MD 07/07/2024 08:50 AM EDT
--- NOTE | ~2024-07-07 | CT_ITS ---
CLINICAL HISTORY: Stroke Protocol CT angiography head and neck with contrast. 3D Postprocessing. Comparison: CT/SR - CT HEAD FOR STROKE - 07/07/24 08:[address]/SR - CT ANGIO HEAD NECK STROKE - 10/21/22 11:32 EDT Findings: Aortic arch and cervical great vessels are patent with no aneurysm, dissection, hemodynamically significant stenoses, or occlusion. Intracranial arteries are patent. No aneurysm, dissection, hemodynamically significant stenoses, or occlusion. No abnormal intracranial enhancement. The visualized thyroid gland is unremarkable. Emphysematous lung apices are clear. Degenerative change of the spine. IMPRESSION: Patent head and neck CTA. This document has been electronically signed by: Abhilash Sampson DO on 07/07/2024 09:49:23
--- NOTE | ~2024-07-07 | CT_ITS ---
CLINICAL HISTORY: Stroke Protocol CT head with contrast Comparison: Head MRI 10/22/2022. Only the sagittal sequence from study 10/21/2022 provided for comparison. Findings: No acute intracranial hemorrhage, edema, mass effect or extra-axial collection. Mildly dense vessels although not clearly dense vessel sign. The CTA is not available for comparison. Asymmetric volume loss of the left temporal and parietal lobe although no associated encephalomalacia and gliosis. Changes may be developmental. No acute appearing alteration in the silva-white matter interface. Ventricles within normal limits for age. Posterior fossa structures intact. Trace mucoperiosteal thickening right maxillary sinus. Otherwise, paranasal sinuses and mastoids clear. Globes and orbits intact. Impression: No acute appearing cardiopulmonary process evident. This document has been electronically signed by: Davey Vanessa MD on 07/07/2024 08:38:58
[2024-07-07 08:01] VITALS: BP 126/86; PULSE 74; PULSE 80; RESP 16; TEMP 36.4; O2SAT 96; O2SAT 97; BMI 28.1
--- NOTE | 2024-07-07 08:04 | ECG_ITS ---
Test Reason : stroke Blood Pressure : */* mmHG Vent. Rate : 70 BPM Atrial Rate : 70 BPM P-R Int : 154 ms QRS Dur : 80 ms QT Int : 368 ms P-R-T Axes : 39 -75 70 degrees QTcB Int : 397 ms Normal sinus rhythm Left axis deviation Low voltage QRS Possible Inferior-posterior infarct (cited on or before 21-Oct-2022) Abnormal ECG When compared with ECG of 09-Apr-2023 11:59, No significant change was found Referred By: Merary Fonseca Electronically Signed By: MAK KLEIN MD
--- NOTE | 2024-07-07 08:06 | ED_ITS ---
HPI - Neuro Symptoms/Deficit General Chief Complaint: Stroke Stated Complaint: WEAK,DIZZY,FROM FACILITY PER EMS Time Seen by Provider: 07/07/24 08:06 Source: patient, EMS and RN notes reviewed Mode of arrival: EMS Limitations: no limitations History of Present Illness ED Provider: Merary Fonseca PA-C HPI Narrative: This is a 74-year-old male, with a past medical history of schizoaffective disorder, bipolar disorder, COPD, restless leg syndrome, hypertension, coronary artery disease, ascending aortic aneurysm repair, noninsulin dependent type 2 diabetes, history of TIA, who presents emergency department via EMS from [facility] with concerns for funny feeling in my mouth . Patient states that about 1 hour ago while he was washing his face he felt as though he was trying to speak and was having difficulty with formulating those words. Per EMS, patient was also reporting numbness and tingling in his mouth in his bilateral hands, which has since resolved. Patient denies any recent illness. No chest pain or shortness of breath. No abdominal pain nausea or vomiting. Onset (ago): hour(s) Location: speech History of same: Yes Quality: weak and tingling Relieving factors: time Context: gradual onset On Anticoagulants: No Associated symptoms: denies other symptoms Treatments Prior to Arrival: none Related Data Home Medications ?Medication ?Instructions ?Recorded ?Confirmed acetaminophen 325 mg tablet 650 mg PO Q6H PRN Pain, Moderate 10/21/22 07/07/24 benztropine 0.5 mg tablet 0.5 mg PO DAILY 10/21/22 07/07/24 benztropine 1 mg tablet 1 mg PO BEDTIME 10/21/22 07/07/24 ipratropium 0.5 mg-albuterol 3 mg 3 ml inhalation Q6H PRN Shortness 10/21/22 07/07/24 (2.5 mg base)/3 mL nebulization Of Breath soln metformin 1,000 mg tablet 1,000 mg PO BID 10/21/22 07/07/24 olanzapine 5 mg tablet (Zyprexa) 10 mg PO DAILY 10/21/22 07/07/24 omeprazole 20 mg tablet,delayed 20 mg PO DAILY@0630 10/21/22 07/07/24 release ropinirole 1 mg tablet 2 mg PO BEDTIME 10/21/22 07/07/24 acetaminophen 325 mg tablet 325 mg PO Q6H PRN Pain, Mild 04/09/23 07/07/24 acetaminophen 325 mg tablet 650 mg PO BEDTIME PRN Pain 04/09/23 07/07/24 aspirin 81 mg tablet,delayed 81 mg PO DAILY 04/09/23 07/07/24 release magnesium hydroxide 400 mg/5 mL 30 ml PO BEDTIME PRN Constipation 04/09/23 07/07/24 oral suspension (Milk of Magnesia) paliperidone 6 mg tablet,extended 6 mg PO BID 04/09/23 07/07/24 release 24 hr (Invega) polyethylene glycol 3350 17 gram 17 g PO DAILY PRN Constipation 04/09/23 07/07/24 oral powder packet amlodipine 5 mg tablet 5 mg PO DAILY 07/07/24 07/07/24 bisacodyl 10 mg rectal suppository 10 mg NM DAILY PRN Constipation 07/07/24 07/07/24 epinephrine 0.3 mg/0.3 mL 0.3 mg IM Q15M PRN Allergic 07/07/24 07/07/24 injection, auto-injector (EpiPen) Reaction glipizide 5 mg tablet 5 mg PO DAILY 07/07/24 07/07/24 glucagon 1 mg/0.2 mL subcutaneous 1 mg subcut Q20M PRN low sugar 07/07/24 07/07/24 solution (Gvoke) lamotrigine 150 mg tablet 300 mg PO DAILY 07/07/24 07/07/24 lisinopril 20 mg tablet 20 mg PO DAILY 07/07/24 07/07/24 melatonin 3 mg tablet 3 mg PO BEDTIME 07/07/24 07/07/24 naloxone 0.4 mg/mL injection 0.4 mg subcut Q2M PRN Opiate 07/07/24 07/07/24 solution Reversal naloxone 4 mg/actuation nasal spray 4 mg intranasal Q3M PRN Opiate 07/07/24 07/07/24 Reversal olanzapine 20 mg tablet 20 mg PO BEDTIME 07/07/24 07/07/24 olanzapine 5 mg tablet 5 mg PO Q12H PRN Agitation 07/07/24 07/07/24 sodium phosphates 19 gram-7 118 ml NM DAILY PRN Constipation 07/07/24 07/07/24 gram/118 mL enema (Fleet Enema) Allergies Allergy/AdvReac Type Severity Reaction Status Date / Time atorvastatin Allergy Unknown Verified 07/07/24 08:04 gabapentin Allergy Unknown Verified 07/07/24 08:04 nicotine Allergy Unknown Verified 07/07/24 08:04 Review of Systems 2 Review of Systems: Yes all other systems are reviewed and are negative Constitutional: Constitutional: Reports as per [facility] Past Medical History Medical History History of TIA (transient ischemic attack) Type 2 diabetes mellitus Hypertension Restless leg syndrome Coronary artery disease COPD (chronic obstructive pulmonary disease) Bipolar disorder Schizoaffective disorder Surgical History History of aortic aneurysm repair Social History Social History Household Members: None Household Members Other:: [facility] Housing: Intermediate Housing Other:: [facility], [place] Do you presently have visiting nurse or other home services: No Unable to assess alcohol history related to: Unknown Comment: 1:1 sitter Patient Tobacco Use Status: Tobacco use Unknown Tobacco use type: Cigarette Smoked in Last 30 Days: Yes Patient Interested in Nicotine Replacement: No Patient Given Instructions on How to Stop Smoking: No Use of substances other than those prescribed or required for medical reasons: No Have you been hit, kicked, punched, or otherwise hurt by someone within the past year? If so, by whom?: No Do you feel safe in your current relationship?: No Current Relationship Is there a partner from a previous relationship who is making you feel unsafe now?: No Are you made to feel afraid or neglected: No Spiritual Healthcare Practices: none Advance Directives: Yes Advance Directives Information Provided: Yes Advance Directives on File: No Advance Directives Date on File: 07/07/24 Do you have a plan to hurt others: No Plan Recently lost weight without trying: No Eating poorly because of decreased appetite: No Poor oral hygiene: No service: No Physical Exam 2 Vital Signs: Vital Signs: Last Vital Signs Temp 97.5 F 07/07/24 08:26 Pulse 74 07/07/24 08:26 Resp 16 07/07/24 08:26 BP 126/86 07/07/24 08:26 Pulse Ox 96 07/07/24 08:26 O2 Del Method Room Air 07/07/24 08:26 BMI result Body Mass Index 28.1 Const: General: cooperative, comfortable and no acute distress O rientation/consciousness: patient oriented x3 Limitations: no limitations HEENT: Head: Yes normal to inspection, Yes normocephalic and Yes atraumatic Ears: hearing grossly normal bilaterally General nose exam: Normal external nose present Face and sinus: Yes normal facial exam Mouth: Normal oral and palatal mucosa present, oropharynx normal and moist mucous membranes Throat: Yes posterior oropharynx normal Eyes: General: appearance normal, both eyes and all related structures E yelids: Yes eyelids normal Conjunctivae: conjunctivae normal Sclerae: s clerae normal Pupils: Equal, round and reactive pupils present EOM: EOMs intact bilaterally Neck: Neck: Yes normal visual inspection, Yes full ROM and Yes no lymphadenopathy Lymphatic: no lymphadenopathy noted Chest: Chest palpation & inspection: normal inspection of the chest Resp: Effort & Inspection: normal respiratory effort and able to speak in complete sentences Auscultation: clear to auscultation bilaterally, no crackles, no rales, no rhonchi and no wheezes Cardio: Rate: regular rate Rhythm: regular rhythm Heart sounds: S1 normal heart sound present and S2 normal heart sound present GI: Inspection: Yes normal to inspection Skin: General skin exam: no rashes or lesions noted Trauma: no lacerations or abrasions Wounds: no wounds Neuro: General: patient oriented x3 and moves all extremities Cranial nerves: Yes Equal, round and reactive pupils present, Yes Midline tongue present and Yes Other cranial nerve findings present (Unable to appreciate asymmetric smile, ? Left-sided facial droop) Cognition (Neuro): normal cognition M otor exam (neuro): 5/5 motor strength present throughout and Pronator motor function not present Pupils: Normal pupillary reactivity/response: bilateral Extrem: General: Yes normal to inspection Right upper extremity: normal to inspection Left upper extremity: normal to inspection Right lower extremity: normal to inspection Left lower extremity: normal to inspection Medications Administered Discontinued Medications Generic Name Dose Route Start Last Admin Trade Name Freq PRN Reason Stop Dose Admin Iohexol 70 ml 07/07/24 08:33 07/07/24 08:34 Iohexol 350 Mg/Ml 100 Ml Infus..Btl IV 07/07/24 08:34 70 ml ONCE ONE Administration Medical Decision Making Medical Decision Making MDM Narrative: This is a 74-year-old male, with a history of schizoaffective disorder, bipolar disorder, COPD, restless legs syndrome, hypertension, coronary artery disease, history ascending aortic aneurysm repair, [id number] type 2 diabetes, history of TIA, who presents emergency department with concerns for funny feeling in my mouth which began about 1 hour prior to arrival. [facility]. He states that when he speaks he feels like something is weak on the inside. It was reported via EMS that he did have numbness and tingling in his mouth and bilateral hands. He is not on anticoagulation. I saw patient, no appreciable neuro deficits on examination however unable to appreciate asymmetric smile, given history of TIAs, presentation, will activate stroke protocol. Course: CT and CTA negative for any acute process. Patient re-evaluated, he is feeling much better and symptoms have since resolved for possible TIA. Discussed with attending physician. Patient should be admitted for further management, and MRI. Labs returned, he has no leukocytosis, H&H stable, chemistry revealing hyponatremic at 129. Will discussed with hospitalist, transfer of care initiated. Differential Diagnosis Differential Diagnoses: The differential diagnosis associated with the presentation includes TIA, CVA, ICH, electrolyte derangement Admission/Observation Consideration of admission/observation: Escalation of care including admission/observation considered Lab Data [facility] Lab Attestation statement: I reviewed the patient's lab results. See MDM and course comment 07/07/24 08:17 07/07/24 08:17 Labs: Lab Results 07/07/24 07/07/24 07/07/24 Range/Units 08:09 08:11 08:17 WBC 5.3 (4.8-10.8) X10*3/uL RBC 4.55 L (4.60-5.80) X10*6/uL Hgb 13.2 L (14.0-18.0) g/dl Hct 37.9 L (42.0-52.0) % MCV 83.3 (80.0-98.0) fL MCH 29.0 (27.0-33.0) pg MCHC 34.8 (31.0-36.0) g/dl RDW 13.7 (11.0-16.0) % Plt Count 216 (160-400) X10*3/uL MPV 9.0 L (9.4-12.4) fL Immature Gran % (Auto) 0.8 H (0.0-0.4) % Neut % (Auto) 71.5 (45-73) % Lymph % (Auto) 18.6 L (20-40) % Lee % (Auto) 7.0 (2-11) % Eos % (Auto) 1.5 (0-4) % Baso % (Auto) 0.6 (0-2) % Lymph # (Auto) 1.0 L (1.2-4.9) X10*3/uL Lee # (Auto) 0.4 (0.1-1.2) X10*3/uL Eos # (Auto) 0.1 (0.0-0.4) X10*3/uL Baso # (Auto) 0.0 (0.0-0.2) X10*3/uL Abs Immat Gran (auto) 0.04 H (0.00-0.03) X10*3/uL Absolute Neuts (auto) 3.8 (2.0-8.3) x10*3/uL Absolute Nucleated RBC 0.000 (0.0-0.012) X10*3/uL Nucleated RBC % (auto) 0.0 (0.0-0.2) /100WBC PT 11.2 (10.9-12.4) SEC Whole Blood PT 10.4 L (11.1-13.5) sec INR 1.0 (0.9-1.1) Whole Blood INR 0.9 (0.9-1.1) APTT 27.8 (26.0-36.8) SEC Sodium 129 L (135-145) mmol/L Potassium 5.0 (3.3-5.1) mmol/L Chloride 98 (96-108) mmol/L Carbon Dioxide 24 (22-29) mmol/L Anion Gap 12 (12-20) BUN 17 H (9-16) mg/dL Creatinine 0.89 (0.5-1.4) mg/dL Estim Creat Clear Calc 80.4 Estimated GFR > 60 POC Glucose 157 H (60-115) mg/dL Random Glucose 159 H (60-115) mg/dL Calcium 9.2 (8.4-10.2) mg/dL Troponin I High Sens < 2.7 (<3.5-35.0) ng/L Triglycerides 86 (<150) mg/dL Cholesterol 168 (<200) mg/dL LDL Cholesterol, Calc 97 (<100) mg/dL HDL Cholesterol 54 (>40) mg/dL Urine Color Urine Appearance Urine pH (5.0-9.0) Ur Specific Herreid (1.005-1.025) Urine Protein (Neg-Trace) mg/dL Urine Glucose (UA) (Negative) mg/dL Urine Ketones (Negative) mg/dL Urine Blood (Negative) Urine Nitrite (Negative) Ur Leukocyte Esterase (Negative) 07/07/24 Range/Units 12:19 WBC (4.8-10.8) X10*3/uL RBC (4.60-5.80) X10*6/uL Hgb (14.0-18.0) g/dl Hct (42.0-52.0) % MCV (80.0-98.0) fL MCH (27.0-33.0) pg MCHC (31.0-36.0) g/dl RDW (11.0-16.0) % Plt Count (160-400) X10*3/uL MPV (9.4-12.4) fL Immature Gran % (Auto) (0.0-0.4) % Neut % (Auto) (45-73) % Lymph % (Auto) (20-40) % Lee % (Auto) (2-11) % Eos % (Auto) (0-4) % Baso % (Auto) (0-2) % Lymph # (Auto) (1.2-4.9) X10*3/uL Lee # (Auto) (0.1-1.2) X10*3/uL Eos # (Auto) (0.0-0.4) X10*3/uL Baso # (Auto) (0.0-0.2) X10*3/uL Abs Immat Gran (auto) (0.00-0.03) X10*3/uL Absolute Neuts (auto) (2.0-8.3) x10*3/uL Absolute Nucleated RBC (0.0-0.012) X10*3/uL Nucleated RBC % (auto) (0.0-0.2) /100WBC PT (10.9-12.4) SEC Whole Blood PT (11.1-13.5) sec INR (0.9-1.1) Whole Blood INR (0.9-1.1) APTT (26.0-36.8) SEC Sodium (135-145) mmol/L Potassium (3.3-5.1) mmol/L Chloride (96-108) mmol/L Carbon Dioxide (22-29) mmol/L Anion Gap (12-20) BUN (9-16) mg/dL Creatinine (0.5-1.4) mg/dL Estim Creat Clear Calc Estimated GFR POC Glucose (60-115) mg/dL Random Glucose (60-115) mg/dL Calcium (8.4-10.2) mg/dL Troponin I High Sens (<3.5-35.0) ng/L Triglycerides (<150) mg/dL Cholesterol (<200) mg/dL LDL Cholesterol, Calc (<100) mg/dL HDL Cholesterol (>40) mg/dL Urine Color Yellow Urine Appearance Clear Urine pH 6.5 (5.0-9.0) Ur Specific Herreid 1.020 (1.005-1.025) Urine Protein Negative (Neg-Trace) mg/dL Urine Glucose (UA) Negative (Negative) mg/dL Urine Ketones Negative (Negative) mg/dL Urine Blood Negative (Negative) Urine Nitrite Negative (Negative) Ur Leukocyte Esterase Negative (Negative) Independent Interpretation I performed an independent interpretation of an: EKG Interpretation: Normal sinus rhythm at a ventricular rate of 70 beats per minute, QT QTC 368/397, no STEMI. Radiology Impression Discussion of test interpretation with radiology: I have reviewed the radiologist's reading. Radiologist Impression: Findings: Aortic arch and cervical great vessels are patent with no aneurysm, dissection, hemodynamically significant stenoses, or occlusion. Intracranial arteries are patent. No aneurysm, dissection, hemodynamically significant stenoses, or occlusion. No abnormal intracranial enhancement. The visualized thyroid gland is unremarkable. Emphysematous lung apices are clear. Degenerative change of the spine. IMPRESSION: Patent head and neck CTA. This document has been electronically signed by: Abhilash Sampson DO on 07/07/2024 09:49:23 Dictated By: Abhilash Sampson MD Findings: No acute intracranial hemorrhage, edema, mass effect or extra-axial collection. Mildly dense vessels although not clearly dense vessel sign. The CTA is not available for comparison. Asymmetric volume loss of the left temporal and parietal lobe although no associated encephalomalacia and gliosis. Changes may be developmental. No acute appearing alteration in the silva-white matter interface. Ventricles within normal limits for age. Posterior fossa structures intact. Trace mucoperiosteal thickening right maxillary sinus. Otherwise, paranasal sinuses and mastoids clear. Globes and orbits intact. Impression: No acute appearing cardiopulmonary process evident. This document has been electronically signed by: Davey Vanessa MD on 07/07/2024 08:38:58 Dictated By: Davey Vanessa MD [place] [id number] XRay Report Signed Patient: Jeromy Mcgill MR#: [id number] : 1950 Acct:[id number] Age/Sex: 74 / M ADM Date: 07/07/24 Loc: HO.ED Attending Dr: Ordering Physician: Merary Marinelli Date of Service: 07/07/24 Procedure(s): XR chest 1V Accession Number(s): [id number] cc: Merary Marinelli~ EXAMINATION: XR CHEST CLINICAL INFORMATION: Stroke Protocol COMPARISON: 10/21/2022. TECHNIQUE: Frontal view of the chest was obtained. FINDINGS: The cardiac, hilar, and mediastinal contours are normal. Aortic mural calcifications. The lungs are mildly hyperaerated, however clear bilaterally. No pneumothorax or effusion. No focal osseous or soft tissue abnormality. Mild degenerative changes in the shoulder joints and throughout the spine. XR/XR chest 1V IMPRESSION: No active pulmonary disease. Electronically signed by: Ángel King MD 07/07/2024 08:50 AM EDT Dictated By: Ángel King MD NIH Stroke Scale Internal: Initial- Upon Arrival Time: 08:07 Level of Consciousness: Alert Level of Consciousness Questions: Answers both questions correctly Level of Consciousness Commands: Performs both tasks correctly Best Gaze: Normal Visual: No visual loss Facial Palsy: Minor paralyis Motor Arm (Right): No drift Motor Arm (Left): No drift Motor Leg (Right): No drift Motor Leg (Left): No drift Limb Ataxia: Absent Sensory: Normal Best Language: No aphasia Dysarthia: Mild to moderate dysarthria Extinction and Inattention: No abnormality Score: 2 Critical Care Time Critical Care Time Critical Care Time: Yes Total Critical Care Time: 31 Attestation: I have personally provided critical care time exclusive of time spent on separately billable procedures. Time includes review of lab data, radiology results, discussion with consultants, and monitoring for potential decompensation. Intervention performed as documented. Discharge Plan Discharge Clinical Impression: Brain TIA, Hyponatremia
[2024-07-07 08:18] LABS: Prothrombin Time Whole Bld POC 10.4 sec (11.1-13.5); ~PT, ~INR - Anti Coag Clinic 0.9 (0.9-1.1)
[2024-07-07 08:19] LABS: Glucose, Whole Blood 157 mg/dL (60-115)
[2024-07-07 08:21] LABS: MANUAL DIFF FLAG NO
[2024-07-07 08:26] VITALS: BP 126/86; PULSE 74; RESP 16; TEMP 36.4; O2SAT 96
[2024-07-07 08:31] LABS: Prothrombin Time 11.2 SEC (10.9-12.4)
[2024-07-07 08:32] LABS: Basophils Percent Auto 0.6 % (0-2); Eosinophils Absolute Auto 0.1 X10*3/uL (0.0-0.4); Eosinophils Percent Auto 1.5 % (0-4); Hematocrit 37.9 % (42.0-52.0); Hemoglobin 13.2 g/dl (14.0-18.0); Imm Gran Abs Auto 0.04 X10*3/uL (0.00-0.03); Imm Gran Pct Auto 0.8 % (0.0-0.4); Lymphocytes Percent Auto 18.6 % (20-40); Mean Corpuscular HGB Conc 34.8 g/dl (31.0-36.0); Mean Corpuscular Volume 83.3 fL (80.0-98.0); Monocytes Absolute Auto 0.4 X10*3/uL (0.1-1.2); Neutrophils Absolute Auto 3.8 x10*3/uL (2.0-8.3); Neutrophils Percent Auto 71.5 % (45-73); Platelet Count 216 X10*3/uL (160-400); Red Blood Count 4.55 X10*6/uL (4.60-5.80); Red Cell Distribution Width 13.7 % (11.0-16.0); White Blood Count 5.3 X10*3/uL (4.8-10.8)
[2024-07-07 08:34] LABS: Partial Thromboplastin Time 27.8 SEC (26.0-36.8)
[2024-07-07] MEDS: iohexoL 350 MG/ML 100 ML INFUS..BTL 70 ML IV (08:34)
[2024-07-07 08:38] LABS: Anion Gap 12 (12-20); Blood Urea Nitrogen 17 mg/dL (9-16); Calcium 9.2 mg/dL (8.4-10.2); Carbon Dioxide 24 mmol/L (22-29); Chloride 98 mmol/L (96-108); Cholesterol 168 mg/dL (<200); Creatinine Clr Calc Pharmacy 80.4; Estimated Glomerular Filt Rate > 60; Glucose Random 159 mg/dL (60-115); HDL Cholesterol 54 mg/dL (>40); LDL Cholesterol Calculated 97 mg/dL (<100); Sodium 129 mmol/L (135-145); Stroke Lab Use COMPLETE; Triglycerides 86 mg/dL (<150)
[2024-07-07 08:43] LABS: Troponin-I High Sensitivity < 2.7 ng/L (<3.5-35.0)
--- NOTE | 2024-07-07 10:47 | MHC.EDTECH ---
Pt was able to use urinal. I assisted pt and threw out urine.
[2024-07-07 12:32] LABS: Appearance Urine Clear; Color Urine Yellow; Glucose Urine UA Negative (Negative); Leukocyte Esterase Urine Negative (Negative); Nitrite Urine Negative (Negative); PH 6.5 (5.0-9.0); Urine Blood Negative (Negative); Urine Ketones Negative (Negative); Urine Protein Negative (Neg-Trace)
--- NOTE | 2024-07-07 13:47 | PHA.MEDREC ---
Addendum entered by Woo Dias PharmD 07/07/24 13:57: reviewed Original Note: Pharmacy Consult ? Medication Reconciliation Pharmacy has completed the medication reconciliation. Utilized list from [facility] to confirm med list.
--- NOTE | 2024-07-07 18:10 | P.HPHOSP_ITS ---
History of Present Illness Date of Service: 07/07/24 Chief Complaint: not feeling well, slurred speach 74-year-old male, with a past medical history of schizoaffective disorder, bipolar disorder, COPD, restless leg syndrome, hypertension, coronary artery disease, ascending aortic aneurysm repair, noninsulin dependent type 2 diabetes, history of TIA, who presents emergency department via EMS from [facility] with concerns for dysarthria. Patient reports that he woke up this morning and was not feeling well and having 3 loose stools. He reports feeling sweaty, woozy and SOB. IN the ER he reports having some CP which has since been resolved. Patient currently denies BAILEY, fever, chills, nausea, vomiting, changes in vision, ringing in his ears, chest pain or palpitations. In the ER labs were drawn significant for NA 129, BUN 17, trops were flat <2.7, urine was negative. EKG: NSR with possible left inferior posterior infarct, unchanged since EKG done 04/09/23. CXR negative for any acute changes CT head Negative CTA Head/neck: patent Review of Systems 2 Review of Systems: General: Appetite is normal. Denies weight gain or loss. Denies fever or chills. 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 Denies SOB ?Heart: denies chest pain or palpitations ?Abdomen: denies nausea, vomiting, diarrhea, constipation, abdominal pain ?: denies incontinence, pain with urination. frequency, retention of urine, ?Musculoskeletal: denies muscle or joint pain/swelling ?Neuro: denies headache, weakness or dizziness [facility] Medical History History of TIA (transient ischemic attack) Type 2 diabetes mellitus Hypertension Restless leg syndrome Coronary artery disease COPD (chronic obstructive pulmonary disease) Bipolar disorder Schizoaffective disorder Surgical History History of aortic aneurysm repair Social History Household Members: None [facility]hold Members Other:: [facility] Housing: [facility] Housing Other:: [facility], [place] Do you presently have visiting nurse or other home services: No Unable to assess alcohol history related to: Unknown Comment: 1:1 sitter Patient Tobacco Use Status: Tobacco use Unknown Tobacco use type: Cigarette Smoked in Last 30 Days: Yes Patient Interested in Nicotine Replacement: No Patient Given Instructions on How to Stop Smoking: No Use of substances other than those prescribed or required for medical reasons: No Have you been hit, kicked, punched, or otherwise hurt by someone within the past year? If so, by whom?: No Do you feel safe in your current relationship?: No Current Relationship Is there a partner from a previous relationship who is making you feel unsafe now?: No Are you made to feel afraid or neglected: No Spiritual Healthcare Practices: none Advance Directives: Yes Advance Directives Information Provided: Yes Advance Directives on File: No Advance Directives Date on File: 07/07/24 Do you have a plan to hurt others: No Plan Recently lost weight without trying: No Eating poorly because of decreased appetite: No Nutrition Risks: No Nutritional Risk Poor oral hygiene: No service: No Meds Allergies Allergy/AdvReac Type Severity Reaction Status Date / Time atorvastatin Allergy Unknown Verified 07/07/24 08:04 gabapentin Allergy Unknown Verified 07/07/24 08:04 nicotine Allergy Unknown Verified 07/07/24 08:04 Home Medications ?Medication ?Instructions ?Recorded ?Confirmed ?Last Taken ?Type acetaminophen 325 mg tablet 650 mg PO Q6H PRN Pain, Moderate 10/21/22 07/07/24 Unknown History benztropine 0.5 mg tablet 0.5 mg PO DAILY 10/21/22 07/07/24 04/08/23 History benztropine 1 mg tablet 1 mg PO BEDTIME 10/21/22 07/07/24 04/08/23 History ipratropium 0.5 mg-albuterol 3 mg 3 ml inhalation Q6H PRN Shortness 10/21/22 07/07/24 Unknown History (2.5 mg base)/3 mL nebulization Of Breath soln metformin 1,000 mg tablet 1,000 mg PO BID 10/21/22 07/07/24 04/09/23 History olanzapine 5 mg tablet (Zyprexa) 10 mg PO DAILY 10/21/22 07/07/24 04/09/23 History omeprazole 20 mg tablet,delayed 20 mg PO DAILY@0630 10/21/22 07/07/24 04/09/23 History release ropinirole 1 mg tablet 2 mg PO BEDTIME 10/21/22 07/07/24 04/08/23 History acetaminophen 325 mg tablet 325 mg PO Q6H PRN Pain, Mild 04/09/23 07/07/24 Unknown History acetaminophen 325 mg tablet 650 mg PO BEDTIME PRN Pain 04/09/23 07/07/24 04/08/23 History aspirin 81 mg tablet,delayed 81 mg PO DAILY 04/09/23 07/07/24 04/08/23 History release magnesium hydroxide 400 mg/5 mL 30 ml PO BEDTIME PRN Constipation 04/09/23 07/07/24 Unknown History oral suspension (Milk of Magnesia) paliperidone 6 mg tablet,extended 6 mg PO BID 04/09/23 07/07/24 04/09/23 History release 24 hr (Invega) polyethylene glycol 3350 17 gram 17 g PO DAILY PRN Constipation 04/09/23 07/07/24 Unknown History oral powder packet amlodipine 5 mg tablet 5 mg PO DAILY 07/07/24 07/07/24 Unknown History bisacodyl 10 mg rectal suppository 10 mg MI DAILY PRN Constipation 07/07/24 07/07/24 Unknown History epinephrine 0.3 mg/0.3 mL 0.3 mg IM Q15M PRN Allergic 07/07/24 07/07/24 Unknown History injection, auto-injector (EpiPen) Reaction glipizide 5 mg tablet 5 mg PO DAILY 07/07/24 07/07/24 Unknown History glucagon 1 mg/0.2 mL subcutaneous 1 mg subcut Q20M PRN low sugar 07/07/24 07/07/24 Unknown History solution (Gvoke) lamotrigine 150 mg tablet 300 mg PO DAILY 07/07/24 07/07/24 Unknown History lisinopril 20 mg tablet 20 mg PO DAILY 07/07/24 07/07/24 Unknown History melatonin 3 mg tablet 3 mg PO BEDTIME 07/07/24 07/07/24 Unknown History naloxone 0.4 mg/mL injection 0.4 mg subcut Q2M PRN Opiate 07/07/24 07/07/24 Unknown History solution Reversal naloxone 4 mg/actuation nasal spray 4 mg intranasal Q3M PRN Opiate 07/07/24 07/07/24 Unknown History Reversal olanzapine 20 mg tablet 20 mg PO BEDTIME 07/07/24 07/07/24 Unknown History olanzapine 5 mg tablet 5 mg PO Q12H PRN Agitation 07/07/24 07/07/24 Unknown History sodium phosphates 19 gram-7 118 ml MI DAILY PRN Constipation 07/07/24 07/07/24 Unknown History gram/118 mL enema (Fleet Enema) Physical Exam 2 Vital Signs and Narrative: Vital Signs: Last Vital Signs Temp 97.5 F 07/07/24 08:26 Pulse 74 07/07/24 08:26 Resp 16 07/07/24 08:26 BP 126/86 07/07/24 08:26 Pulse Ox 96 07/07/24 08:26 O2 Del Method Room Air 07/07/24 08:26 BMI result Body Mass Index 28.1 Gen: comfortable NAD ?HEENT: PERRL, EOMI ?Neuro: CN II-XII normal, sensation intact: 5/5 strength in the upper extremities and lower extremities I: Not performed ?II: Pupils equal and reactive, ?III, IV, : EOM intact, no gaze preference or deviation, no nystagmus. ?V: normal sensation in V1, V2, and V3 segments bilaterally ?VII: no asymmetry, no nasolabial fold flattening ?VIII: normal hearing to speech ?IX, X: normal palatal elevation, no uvular deviation ?XI: 5/5 head turn and 5/5 shoulder shrug bilaterally ?XII: midline tongue protrusion ?CV: RRR, no M/R/G ?Pulm: Bilateral rhonchi ?GI: +nl BS, soft, NDNT ?ext: no C/C/E Results Labs 07/07/24 08:17 07/07/24 08:17 Labs: Laboratory Results - last 24 hr 07/07/24 07/07/24 07/07/24 08:09 08:11 08:17 MCV 83.3 MCH 29.0 MCHC 34.8 RDW 13.7 Plt Count 216 MPV 9.0 L Immature Gran % (Auto) 0.8 H Neut % (Auto) 71.5 Lymph % (Auto) 18.6 L [place] % (Auto) 7.0 Eos % (Auto) 1.5 Baso % (Auto) 0.6 Lymph # (Auto) 1.0 L [place] # (Auto) 0.4 Eos # (Auto) 0.1 Baso # (Auto) 0.0 Abs Immat Gran (auto) 0.04 H Absolute Neuts (auto) 3.8 Absolute Nucleated RBC 0.000 Nucleated RBC % (auto) 0.0 PT 11.2 Whole Blood PT 10.4 L INR 1.0 Whole Blood INR 0.9 APTT 27.8 Anion Gap 12 Estim Creat Clear Calc 80.4 Estimated GFR > 60 POC Glucose 157 H Random Glucose 159 H Calcium 9.2 Triglycerides 86 Cholesterol 168 LDL Cholesterol, Calc 97 HDL Cholesterol 54 Urine Color Urine Appearance Urine pH Ur Specific [place] Urine Protein Urine Glucose (UA) Urine Ketones Urine Blood Urine Nitrite Ur Leukocyte Esterase 07/07/24 12:19 MCV MCH MCHC RDW Plt Count MPV Immature Gran % (Auto) Neut % (Auto) Lymph % (Auto) [place] % (Auto) Eos % (Auto) Baso % (Auto) Lymph # (Auto) [place] # (Auto) Eos # (Auto) Baso # (Auto) Abs Immat Gran (auto) Absolute Neuts (auto) Absolute Nucleated RBC Nucleated RBC % (auto) PT Whole Blood PT INR Whole Blood INR APTT Anion Gap Estim Creat Clear Calc Estimated GFR POC Glucose Random Glucose Calcium Triglycerides Cholesterol LDL Cholesterol, Calc HDL Cholesterol Urine Color Yellow Urine Appearance Clear Urine pH 6.5 Ur Specific [place] 1.020 Urine Protein Negative Urine Glucose (UA) Negative Urine Ketones Negative Urine Blood Negative Urine Nitrite Negative Ur Leukocyte Esterase Negative Imaging Radiologist's Impressions: Impressions Chest X-Ray 07/07/24 08:27 IMPRESSION: No active pulmonary disease. Electronically signed by: Ángel King MD 07/07/2024 08:50 AM EDT Assessment and Plan (1) Hyponatremia: Status: Acute (2) Brain TIA: Status: Acute Plan 74 yo male presenting with dysarthria. All head and neck imagine thus far are negative. NSR on EKG. Neurologically intact. TIA -monitor on telemetry -Neuro checks Q4 hrs -Speech consult and evaluation -echo -Neurology consult -Continue aspirin Hyponatremia -IVF 500cc of NS -repeat BMP -urine sodium and creatintine -Follow up with psych if hyponatremia potential side effect of Lamotrigine and onanzapine Diabetes Mellitus Type 2 -glucose monitoring ACHS -Hold glipizide and metformin -Sliding scale -check A1C HTN -Continue amlodipine, lisinopril Chronic normocytic normochromic anemia -trend and monitor CBC -Monitor for bleeding GERD -Omeprazole Mood disorders -Continue Zyprexa, Lamotrigine, Invega, onanzapine Restless leg syndrome -Continue ropinirole Code: Full (Patient does not want life sustaining measures if he becomes brain ) VTE: Lovenox Patient will be admitted to telemetry to monitor for any arrhythmias s/p TIA and to follow hyponatremia. Quality Stroke Does the patient have a stroke diagnosis?: No VTE Prior VTE?: No VTE Risk Level:: Medical - moderate - high VTE Device Contraindication: N/A - Device Ordered VTE Drug Contraindication: N/A - Med Ordered
[2024-07-07 18:51] VITALS: BP 150/71; PULSE 67; RESP 18; TEMP 36.2; O2SAT 95
[2024-07-07 20:31] VITALS: BP 134/61; PULSE 56; RESP 16; TEMP 36; O2SAT 96
[2024-07-07] MEDS: Benztropine Mesylate 1 MG TABLET PO (20:53)
[2024-07-07] MEDS: rOPINIRole HCL 2 MG TABLET PO (20:53)
[2024-07-07] MEDS: OLANZapine 10 MG TABLET 20 MG PO (20:53)
[2024-07-07] MEDS: Paliperidone ER 6 MG TAB.ER.24 PO (20:54)
[2024-07-07] MEDS: Enoxaparin Sodium 40 MG/0.4 ML SYRINGE SUBCUT (20:54)
[2024-07-07] MEDS: 0.9 % Sodium Chloride 500 ML IV (20:54)
[2024-07-07] MEDS: Acetaminophen 325 MG TABLET 650 MG PO (20:54)
[2024-07-07 20:55] LABS: Glucose, Whole Blood 167 mg/dL (60-115)
[2024-07-08] VITALS: BP 132/63; PULSE 74; RESP 18; TEMP 36.3; O2SAT 93
[2024-07-08 04:00] VITALS: BP 130/61; PULSE 71; RESP 18; TEMP 36.1; O2SAT 92
[2024-07-08] MEDS: Acetaminophen 325 MG TABLET 650 MG PO (04:12)
[2024-07-08] MEDS: Omeprazole 20 MG CAPSULE.DR PO (04:12)
[2024-07-08 05:07] LABS: Creatinine Urine 36.54 mg/dL
[2024-07-08 06:40] LABS: Hematocrit 39.5 % (42.0-52.0); Hemoglobin 13.6 g/dl (14.0-18.0); Mean Corpuscular HGB Conc 34.4 g/dl (31.0-36.0); Mean Corpuscular Hemoglobin 28.9 pg (27.0-33.0); Mean Corpuscular Volume 83.9 fL (80.0-98.0); Mean Platelet Volume 9.3 fL (9.4-12.4); Platelet Count 225 X10*3/uL (160-400); Red Blood Count 4.71 X10*6/uL (4.60-5.80); Red Cell Distribution Width 13.5 % (11.0-16.0); White Blood Count 4.5 X10*3/uL (4.8-10.8)
[2024-07-08 06:52] LABS: Anion Gap 12 (12-20); Blood Urea Nitrogen 11 mg/dL (9-16); Calcium 9.1 mg/dL (8.4-10.2); Carbon Dioxide 24 mmol/L (22-29); Chloride 103 mmol/L (96-108); Creatinine Clr Calc Pharmacy 103.7; Estimated Glomerular Filt Rate > 60; Glucose Random 159 mg/dL (60-115); Potassium 4.6 mmol/L (3.3-5.1); Sodium 134 mmol/L (135-145)
--- NOTE | 2024-07-08 07:00 | CA_ITS ---
Transthoracic Echocardiogram Patient (Last, First, Middle): Jeromy Mcgill, Gender: Male Date of : 1950 Age: 74 Procedure Date: 07/08/2024 Procedure Type: Transthoracic Echocardiogram Location: [facility] Height: 177.8 cm Weight: 88.45 kg BSA: 2.06 m2 Heart Rate: 71 bpm BP: 130 / 61 mmHg Selling Specialist: MIRTA Referring MD: Tita Fisher [facility] [employer] Quality Inspector: Dre Suarez MD Symptoms: TIA Study Quality: Technically Difficult ECG Rhythm: Sinus Conclusions: - 1. Technically limited study 2. Hyperdynamic LV EF of greater than 70% 3. Limited evaluation of cardiac valves Findings Procedure Information Contrast agent, definity, is being given per protocol without apparent complications. Left Ventricle Normal left ventricular cavity size. The left ventricular systolic function is hyperdynamic. The visually estimated ejection fraction is >70%. Spectral Doppler is indicative of an impaired relaxation filling pattern. Right Ventricle The right ventricle was not well visualized. There is normal right ventricular systolic function. Atria The left atrium was not well visualized. Interatrial shunt cannot be excluded. The right atrium was not well visualized. Aortic Valve The aortic valve was not well visualized. Mitral Valve The mitral valve was not well visualized. Pulmonic Valve The pulmonic valve was not well visualized. Tricuspid Valve The tricuspid valve was not well visualized. Great Vessels The aorta was not well visualized. The pulmonary artery was not well visualized. Venous The inferior vena cava was not well visualized. Pericardium/Pleural The pericardium was not well visualized. Measurements 2D Systolic Function EF 4C: 79.20 >55% Mitral Valve MV Pk E: 0.57 MV PK A: 0.88 MV Decel Time: 312.00 E/A: 0.60 E'Lateral: 6.96 E'Medial: 5.33 E/E' Med: 10.60 E/E' Lat: 8.10 PHT: 91.00 MVA PHT: 2.42 Decel Bailey: 1.81 Aortic Valve AoV Pk Junior: 1.31 AoV Pk Grad: 7.00 LVOT LVOT Pk Junior: 1.27 LVOT Mn Junior: 0.77 LVOT VTI: 0.20 LVOT Pk Grad: 6.00 LVOT Mn Grad: 3.00 Diastolic Function MV Pk E: 0.57 MV Pk A: 0.88 E/A: 0.60 E'Medial: 5.33 E/E' Med: 10.60 E' Laterial: 6.96 E/E' Lat: 8.10 Right Ventricle TAPSE (mm): 20.80 TVS' Junior: 17.40 Tricuspid Valve RA Press: 4.00 Great Vessels Aorta Sinus of Valsalva: 3.50 2.0-3.5 cm Updated in Other Vendor System with Status of Final Dre Suarez MD electronically signed on 07/08/2024 2:13:05 PM with status of Final
[2024-07-08 07:13] LABS: Estimated Average Glucose 154 mg/dL; Hemoglobin A1C 192.8353 umol/L; Total Hemoglobin (HGBA1C) 3613.3075 umol/L
[2024-07-08 07:26] LABS: Influenza A PCR NEGATIVE (Negative); Influenza B PCR NEGATIVE (Negative); Resp Syncy Virus RNA Qual PCR NEGATIVE (Negative); SARS COV2 PCR INHOUSE NEGATIVE (Negative)
[2024-07-08 08:00] VITALS: BP 104/63; PULSE 70; RESP 18; TEMP 36; O2SAT 94
--- NOTE | 2024-07-08 08:36 | PM.NEUROCN ---
History of Present Illness Data of Consult Service Date: 07/08/24 Primary Care Provider: KRYSTA RICE HPI Reason for consult: Difficulty speaking and dizziness 74 years old man with complicated underlying neuropsychiatric history with diagnosis of schizoaffective disorder or multiple antipsychotic medicines came to hospital with complaints of difficulty speaking and dizziness. He was also having some diarrhea. When I talked to him, he said that he was not confused and he was dizzy like lightheaded. There was no focal arm or leg weakness any I symptom or ear symptom. He was able to comprehend and speak. Review of Systems Review of Systems: Recent diarrhea with no cold or flu-like illness PMFSH Past Medical History Medical History History of TIA (transient ischemic attack) Type 2 diabetes mellitus Hypertension Restless leg syndrome Coronary artery disease COPD (chronic obstructive pulmonary disease) Bipolar disorder Schizoaffective disorder Surgical History Surgical History History of aortic aneurysm repair Social History Social History Household Members: None Household Members Other:: [facility] Housing: [facility] Housing Other:: [facility], [place] Do you presently have visiting nurse or other home services: No Unable to assess alcohol history related to: Unknown Comment: 1:1 sitter Patient Tobacco Use Status: Tobacco use Unknown Tobacco use type: Cigarette Advance Directives Date on File: 07/07/24 service: No Meds Allergies Allergy/AdvReac Type Severity Reaction Status Date / Time atorvastatin Allergy Unknown Verified 07/07/24 08:04 gabapentin Allergy Unknown Verified 07/07/24 08:04 nicotine Allergy Unknown Verified 07/07/24 08:04 Active Medications: Current Medications Acetaminophen (Acetaminophen 325 Mg Tablet) 650 mg PO Q6H PRN PRN Reason: Pain, Mild 1-3,fever,headache Last Admin: 07/08/24 04:12 Dose: 650 mg Amlodipine Besylate (Amlodipine Besylate 5 Mg Tablet) 5 mg PO DAILY [facility]; Protocol Aspirin (Aspirin Enteric Coated 81 Mg Tablet.) 81 mg PO DAILY [facility] Benztropine Mesylate (Benztropine Mesylate 0.5 Mg Tablet) 0.5 mg PO DAILY [facility] Benztropine Mesylate (Benztropine Mesylate 1 Mg Tablet) 1 mg PO BEDTIME [facility] Last Admin: 07/07/24 20:53 Dose: 1 mg Calcium Carbonate (Calcium Carbonate 750 Mg Tab.Chew) 750 mg PO Q4H PRN PRN Reason: Heartburn Dextrose (Dextrose 50 % 25 Gm/50 Ml Syringe) 25 gm IVPUSH Q15M PRN; Protocol PRN Reason: per Hypoglycemia Standing Ord. Enoxaparin Sodium (Enoxaparin Sodium 40 Mg/0.4 Ml Syringe) 40 mg SUBCUT Q24H [facility] Last Admin: 07/07/24 20:54 Dose: 40 mg Glucose (Glucose Gel 15 Gm Gel..Gram.) 15 gm PO Q15M PRN; Protocol PRN Reason: per Hypoglycemia Standing Ord. Lamotrigine (Lamotrigine 100 Mg Tablet) 300 mg PO DAILY [facility] Lisinopril (Lisinopril 20 Mg Tablet) 20 mg PO DAILY [facility]; Protocol Magnesium Hydroxide (Milk Of Magnesia 30 Ml Oral.Susp) 30 ml PO DAILY PRN PRN Reason: Constipation Melatonin (Melatonin 3 Mg Tablet) 6 mg PO BEDTIME PRN PRN Reason: Insomnia Olanzapine (Olanzapine 5 Mg Tablet) 5 mg PO Q12H PRN PRN Reason: Agitation Olanzapine (Olanzapine 10 Mg Tablet) 20 mg PO BEDTIME [facility] Last Admin: 07/07/24 20:53 Dose: 20 mg Olanzapine (Olanzapine 10 Mg Tablet) 10 mg PO DAILY [facility] Omeprazole (Omeprazole 20 Mg Capsule.Dr) 20 mg PO DAILY@0630 [facility] Last Admin: 07/08/24 04:12 Dose: 20 mg Paliperidone (Paliperidone Er 6 Mg Tab.Er.24) 6 mg PO BID [facility] Last Admin: 07/07/24 20:54 Dose: 6 mg Ropinirole HCl (Ropinirole Hcl 2 Mg Tablet) 2 mg PO BEDTIME [facility] Last Admin: 07/07/24 20:53 Dose: 2 mg Sodium Chloride (0.9 % Sodium Chloride Flush 3 Ml Syringe) 3 ml IVFLUSH QSHIFT [facility] Last Admin: 07/08/24 01:25 Dose: Not Given Home Medications ?Medication ?Instructions ?Recorded ?Confirmed ?Last Taken ?Type acetaminophen 325 mg tablet 650 mg PO Q6H PRN Pain, Moderate 10/21/22 07/07/24 Unknown History benztropine 0.5 mg tablet 0.5 mg PO DAILY 10/21/22 07/07/24 04/08/23 History benztropine 1 mg tablet 1 mg PO BEDTIME 10/21/22 07/07/24 04/08/23 History ipratropium 0.5 mg-albuterol 3 mg 3 ml inhalation Q6H PRN Shortness 10/21/22 07/07/24 Unknown History (2.5 mg base)/3 mL nebulization Of Breath soln metformin 1,000 mg tablet 1,000 mg PO BID 10/21/22 07/07/24 04/09/23 History olanzapine 5 mg tablet (Zyprexa) 10 mg PO DAILY 10/21/22 07/07/24 04/09/23 History omeprazole 20 mg tablet,delayed 20 mg PO DAILY@0630 10/21/22 07/07/24 04/09/23 History release ropinirole 1 mg tablet 2 mg PO BEDTIME 10/21/22 07/07/24 04/08/23 History acetaminophen 325 mg tablet 325 mg PO Q6H PRN Pain, Mild 04/09/23 07/07/24 Unknown History acetaminophen 325 mg tablet 650 mg PO BEDTIME PRN Pain 04/09/23 07/07/24 04/08/23 History aspirin 81 mg tablet,delayed 81 mg PO DAILY 04/09/23 07/07/24 04/08/23 History release magnesium hydroxide 400 mg/5 mL 30 ml PO BEDTIME PRN Constipation 04/09/23 07/07/24 Unknown History oral suspension (Milk of Magnesia) paliperidone 6 mg tablet,extended 6 mg PO BID 04/09/23 07/07/24 04/09/23 History release 24 hr (Invega) polyethylene glycol 3350 17 gram 17 g PO DAILY PRN Constipation 04/09/23 07/07/24 Unknown History oral powder packet amlodipine 5 mg tablet 5 mg PO DAILY 07/07/24 07/07/24 Unknown History bisacodyl 10 mg rectal suppository 10 mg RI DAILY PRN Constipation 07/07/24 07/07/24 Unknown History epinephrine 0.3 mg/0.3 mL 0.3 mg IM Q15M PRN Allergic 07/07/24 07/07/24 Unknown History injection, auto-injector (EpiPen) Reaction glipizide 5 mg tablet 5 mg PO DAILY 07/07/24 07/07/24 Unknown History glucagon 1 mg/0.2 mL subcutaneous 1 mg subcut Q20M PRN low sugar 07/07/24 07/07/24 Unknown History solution (Gvoke) lamotrigine 150 mg tablet 300 mg PO DAILY 07/07/24 07/07/24 Unknown History lisinopril 20 mg tablet 20 mg PO DAILY 07/07/24 07/07/24 Unknown History melatonin 3 mg tablet 3 mg PO BEDTIME 07/07/24 07/07/24 Unknown History naloxone 0.4 mg/mL injection 0.4 mg subcut Q2M PRN Opiate 07/07/24 07/07/24 Unknown History solution Reversal naloxone 4 mg/actuation nasal spray 4 mg intranasal Q3M PRN Opiate 07/07/24 07/07/24 Unknown History Reversal olanzapine 20 mg tablet 20 mg PO BEDTIME 07/07/24 07/07/24 Unknown History olanzapine 5 mg tablet 5 mg PO Q12H PRN Agitation 07/07/24 07/07/24 Unknown History sodium phosphates 19 gram-7 118 ml RI DAILY PRN Constipation 07/07/24 07/07/24 Unknown History gram/118 mL enema (Fleet Enema) Physical Exam Vital Signs: Vital Signs: Last Vital Signs Temp 96.8 F 07/08/24 08:00 Pulse 70 07/08/24 08:00 Resp 18 07/08/24 08:00 BP 104/63 07/08/24 08:00 Pulse Ox 94 07/08/24 08:00 O2 Del Method Room Air 07/08/24 08:00 BMI result Body Mass Index 28.1 Neuro: Other: He is alert and awake with normal spontaneity of speech. Attention orientation and comprehension are intact. Teeth were missing and speech is somewhat pendulous. Extraocular muscles are intact. Visual chávez are full. There is no focal weakness. Plantars are flexor. Deep tendon reflexes are absent. Results Labs 07/08/24 06:12 07/08/24 06:12 Labs: Short CBC 07/08/24 Range/Units 06:12 WBC 4.5 L (4.8-10.8) X10*3/uL Hgb 13.6 L (14.0-18.0) g/dl Hct 39.5 L (42.0-52.0) % Plt Count 225 (160-400) X10*3/uL BMP 07/07/24 07/08/24 08:17 06:12 Sodium 129 L 134 L Potassium 5.0 4.6 Chloride 98 103 Carbon Dioxide 24 24 BUN 17 H 11 Creatinine 0.89 0.69 Calcium 9.2 9.1 Urine 07/07/24 Range/Units 12:19 Urine Color Yellow Urine Appearance Clear Urine pH 6.5 (5.0-9.0) Ur Specific [place] 1.020 (1.005-1.025) Urine Protein Negative (Neg-Trace) mg/dL Urine Glucose (UA) Negative (Negative) mg/dL He had a head CT and CTA of brain and neck. 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 There was also [id number] diffuse atrophy. There was no significant vascular stenosis. Serum sodium was low. Assessment and Plan (1) Encephalopathy: Qualifiers: Encephalopathy type: toxic metabolic Qualified Code(s): G92.8 - Other toxic encephalopathy Status: Acute Probably metabolic toxic type encephalopathy from multiple factors including hyponatremia and multiple medicines on board. Now he was better. No significant vascular lesion was noted. His brain imaging revealed findings that were chronic and did not require any further intervention. As far as prevention of vascular disease is concerned, a baby aspirin, blood pressure control, statin can continue. Procedures Date of Service Date of Service: 07/08/24
[2024-07-08] MEDS: lisinopriL 20 MG TABLET PO (08:56)
[2024-07-08] MEDS: Aspirin Enteric Coated 81 MG TABLET.DR PO (08:56)
[2024-07-08] MEDS: lamoTRIgine 100 MG TABLET 300 MG PO (08:57)
[2024-07-08] MEDS: OLANZapine 10 MG TABLET PO (08:58)
[2024-07-08] MEDS: amLODIPine Besylate 5 MG TABLET PO (08:58)
[2024-07-08] MEDS: Benztropine Mesylate 0.5 MG TABLET PO (08:58)
[2024-07-08] MEDS: Paliperidone ER 6 MG TAB.ER.24 PO (08:58)
[2024-07-08] MEDS: 0.9 % Sodium Chloride Flush 3 ML SYRINGE IVFLUSH (08:58)
--- NOTE | 2024-07-08 09:43 | MHC.CM.PN ---
IMM 07/08/24 discussed on the phone with pt.'s guardian, copy sent to Irving Duran. Pt. resides at [facility]. DCP is for him to return there via BLS. CM to follow for DC assistance.
[2024-07-08 11:30] VITALS: BP 105/55; PULSE 78; RESP 16; TEMP 36.8; O2SAT 95
--- NOTE | 2024-07-08 14:38 | PM.DS ---
DS: Providers Provider Date of Service: 07/08/24 Date of admission: 07/07/24 12:25 Date of discharge: 07/08/24 Primary care physician: KRYSTA RICE Consults: 07/07/24 19:00 Consult to Neurology Routine Consulting Provider: [facility] Reason for consultation: TIA DS: Diagnosis Discharge Diagnosis (1) Encephalopathy: Status: Acute (2) Brain TIA: Status: Acute (3) Hyponatremia: Status: Acute DS: Summary Hospital Course Hospital Course: 74-year-old male long-term resident of [facility] with a past medical history of schizoaffective disorder, bipolar disorder, COPD, restless leg syndrome, hypertension, coronary artery disease, ascending aortic aneurysm repair, noninsulin dependent type 2 diabetes, and prior TIA presenting after a brief episode of dysarthria that resolved concerning for recurrent TIA. Also found to have mild hyponatremia with Na 129, prerenal with FENa 0.9. He was admitted to the telemetry unit with Neurology consulted, along with STUDENT SERVICES ADVISOR. All neurologic deficits resolved. Per Neurology possibly acute encephalopathy due to hyponatremia and polypharmacy, but also could be TIA. Aspirin was continued. Atorvastatin is listed as an unknown allergy on his chart, but should be reviewed by his doctor at [facility] and if not a severe reaction, should be restarted for stroke prevention. Sodium normalized after 500 mL of IV NS. A1c 7. He was discharged back to [facility]. Time Attestation Discharge Coordination Time (in mins): 35 Quality: Safe Use of Opioids Does Pt have an Active Cancer Diagnosis on the Problem List?: No Quality: Stroke Does the patient have a stroke diagnosis?: No Physical Exam Vital Signs: Vital Signs: Last Vital Signs Temp 98.2 F 07/08/24 11:30 Pulse 78 07/08/24 11:30 Resp 16 07/08/24 11:30 BP 105/55 L 07/08/24 11:30 Pulse Ox 95 07/08/24 11:30 O2 Del Method Room Air 07/08/24 11:30 BMI result Body Mass Index 28.1 Gen: in no acute distress HEENT: sclera anicteric, moist mucus membranes Neck: supple Lungs: clear to auscultation bilaterally Heart: regular rate and rhythm, no murmurs Abd: soft, non-tender, non-distended Ext: no edema Skin: warm/well-perfused Neuro: alert and oriented x3, no focal findings Psych: appropriate affect DS: Data Data Completed and Pending Pending studies at discharge: Laboratory Results WBC 4.5 X10*3/uL (4.8-10.8) L 07/08/24 06:12 RBC 4.71 X10*6/uL (4.60-5.80) 07/08/24 06:12 Hgb 13.6 g/dl (14.0-18.0) L 07/08/24 06:12 Hct 39.5 % (42.0-52.0) L 07/08/24 06:12 MCV 83.9 fL (80.0-98.0) 07/08/24 06:12 MCH 28.9 pg (27.0-33.0) 07/08/24 06:12 MCHC 34.4 g/dl (31.0-36.0) 07/08/24 06:12 RDW 13.5 % (11.0-16.0) 07/08/24 06:12 Plt Count 225 X10*3/uL (160-400) 07/08/24 06:12 MPV 9.3 fL (9.4-12.4) L 07/08/24 06:12 Immature Gran % (Auto) 0.8 % (0.0-0.4) H 07/07/24 08:17 Neut % (Auto) 71.5 % (45-73) 07/07/24 08:17 Lymph % (Auto) 18.6 % (20-40) L 07/07/24 08:17 [place] % (Auto) 7.0 % (2-11) 07/07/24 08:17 Eos % (Auto) 1.5 % (0-4) 07/07/24 08:17 Baso % (Auto) 0.6 % (0-2) 07/07/24 08:17 Lymph # (Auto) 1.0 X10*3/uL (1.2-4.9) L 07/07/24 08:17 [place] # (Auto) 0.4 X10*3/uL (0.1-1.2) 07/07/24 08:17 Eos # (Auto) 0.1 X10*3/uL (0.0-0.4) 07/07/24 08:17 Baso # (Auto) 0.0 X10*3/uL (0.0-0.2) 07/07/24 08:17 Abs Immat Gran (auto) 0.04 X10*3/uL (0.00-0.03) H 07/07/24 08:17 Absolute Neuts (auto) 3.8 x10*3/uL (2.0-8.3) 07/07/24 08:17 Absolute Nucleated RBC 0.000 X10*3/uL (0.0-0.012) 07/08/24 06:12 Nucleated RBC % (auto) 0.0 /100WBC (0.0-0.2) 07/08/24 06:12 PT 11.2 SEC (10.9-12.4) 07/07/24 08:17 Whole Blood PT 10.4 sec (11.1-13.5) L 07/07/24 08:11 INR 1.0 (0.9-1.1) 07/07/24 08:17 Whole Blood INR 0.9 (0.9-1.1) 07/07/24 08:11 APTT 27.8 SEC (26.0-36.8) 07/07/24 08:17 Sodium 134 mmol/L (135-145) L 07/08/24 06:12 Potassium 4.6 mmol/L (3.3-5.1) 07/08/24 06:12 Chloride 103 mmol/L (96-108) 07/08/24 06:12 Carbon Dioxide 24 mmol/L (22-29) 07/08/24 06:12 Anion Gap 12 (12-20) 07/08/24 06:12 BUN 11 mg/dL (9-16) 07/08/24 06:12 Creatinine 0.69 mg/dL (0.5-1.4) 07/08/24 06:12 Estim Creat Clear Calc 103.7 07/08/24 06:12 Estimated GFR > 60 07/08/24 06:12 POC Glucose 167 mg/dL (60-115) H 07/07/24 20:49 Random Glucose 159 mg/dL (60-115) H 07/08/24 06:12 Estimat Average Glucose 154 mg/dL 07/08/24 06:12 Hemoglobin A1c % 7.0 % (<6.0) H 07/08/24 06:12 Calcium 9.1 mg/dL (8.4-10.2) 07/08/24 06:12 Troponin I High Sens < 2.7 ng/L (<3.5-35.0) 07/07/24 08:17 Triglycerides 86 mg/dL (<150) 07/07/24 08:17 Cholesterol 168 mg/dL (<200) 07/07/24 08:17 LDL Cholesterol, Calc 97 mg/dL (<100) 07/07/24 08:17 HDL Cholesterol 54 mg/dL (>40) 07/07/24 08:17 Urine Color Yellow 07/07/24 12:19 Urine Appearance Clear 07/07/24 12:19 Urine pH 6.5 (5.0-9.0) 07/07/24 12:19 Ur Specific [place] 1.020 (1.005-1.025) 07/07/24 12:19 Urine Protein Negative mg/dL (Neg-Trace) 07/07/24 12:19 Urine Glucose (UA) Negative mg/dL (Negative) 07/07/24 12:19 Urine Ketones Negative mg/dL (Negative) 07/07/24 12:19 Urine Blood Negative (Negative) 07/07/24 12:19 Urine Nitrite Negative (Negative) 07/07/24 12:19 Ur Leukocyte Esterase Negative (Negative) 07/07/24 12:19 Ur Random Sodium 47.0 mmol/L 07/08/24 04:40 Urine Creatinine 36.54 mg/dL 07/08/24 04:40 Influenza Type A (PCR) NEGATIVE (Negative) 07/08/24 06:00 Influenza Type B (PCR) NEGATIVE (Negative) 07/08/24 06:00 RSV RNA Qual (PCR) NEGATIVE (Negative) 07/08/24 06:00 SARS-CoV-2 RNA (RT-PCR) NEGATIVE (Negative) 07/08/24 06:00 Impressions Chest X-Ray 07/07/24 08:27 IMPRESSION: No active pulmonary disease. Electronically signed by: Ángel King MD 07/07/2024 08:[address] head/neck 07/07/24 Patent head and neck CTA. No acute appearing cardiopulmonary process evident. Discharge Plan Discharge Anticipated Discharge Date/Time: 07/08/24 17:31 Patient Disposition: Xfer SNF Discharge Diagnosis: TIA or encephalopathy hyponatremia due to dehydration Referrals: [facility] [Outside] - 1 Week KRYSTA RICE [Primary Care Provider] - 1 Week Discharge Medications: New atorvastatin 40 mg Tablet 40 mg PO BEDTIME Qty: 30 0RF Continued acetaminophen 325 mg Tablet 650 mg PO BEDTIME MDD 6 gm/24 h PRN (Reason: Pain) acetaminophen 325 mg Tablet 325 mg PO Q6H MDD 6 gm/24 h PRN (Reason: Pain, Mild) aspirin 81 mg Tablet,Delayed Release (Dr/Ec) 81 mg PO DAILY paliperidone [Invega] 6 mg Tablet Extended Release 24 Hr 6 mg PO BID polyethylene glycol 3350 17 gram Powder In Packet 17 g PO DAILY PRN (Reason: Constipation) Rx Instructions: Mix in 4 oz beverage magnesium hydroxide [Milk of Magnesia] 400 mg/5 mL Suspension 30 ml PO BEDTIME PRN (Reason: Constipation) Rx Instructions: If no BM in 3 days acetaminophen 325 mg Tablet 650 mg PO Q6H MDD 6 gm/24 h PRN (Reason: Pain, Moderate) benztropine 0.5 mg Tablet 0.5 mg PO DAILY ropinirole 1 mg Tablet 2 mg PO BEDTIME Rx Instructions: administer 1-3 hours before bedtime ipratropium-albuterol 0.5 mg-3 mg(2.5 mg base)/3 mL Solution For Nebulization 3 ml INHALATION Q6H PRN (Reason: Shortness Of Breath) olanzapine [Zyprexa] 5 mg Tablet 10 mg PO DAILY metformin 1,000 mg Tablet 1,000 mg PO BID benztropine 1 mg Tablet 1 mg PO BEDTIME omeprazole 20 mg Tablet,Delayed Release (Dr/Ec) 20 mg PO DAILY@0630 lamotrigine 150 mg Tablet 300 mg PO DAILY naloxone 0.4 mg/mL Solution 0.4 mg SUBCUT Q2M PRN (Reason: Opiate Reversal) Rx Instructions: NTExceed 10 mg total dose/episode lisinopril 20 mg Tablet 20 mg PO DAILY melatonin 3 mg Tablet 3 mg PO BEDTIME amlodipine 5 mg Tablet 5 mg PO DAILY bisacodyl 10 mg Suppository 10 mg AK DAILY PRN (Reason: Constipation) Rx Instructions: If M.O.M ineffective Fleet Enema 19-7 gram/118 mL Enema 118 ml AK DAILY PRN (Reason: Constipation) Rx Instructions: If Bisacodyl ineffective epinephrine [EpiPen] 0.3 mg/0.3 mL Auto-Injector 0.3 mg IM Q15M PRN (Reason: Allergic Reaction) Rx Instructions: for 2 doses olanzapine 20 mg Tablet 20 mg PO BEDTIME glipizide 5 mg Tablet 5 mg PO DAILY naloxone 4 mg/actuation [place],Non-Aerosol 4 mg INTRANASAL Q3M PRN (Reason: Opiate Reversal) Rx Instructions: spray 1 dose into ONE nostril; alternate nostrils w each dose until help arrives Gvoke 1 mg/0.2 mL Solution 1 mg SUBCUT Q20M PRN (Reason: low sugar) Rx Instructions: until target blood sugar attained olanzapine 5 mg Tablet 5 mg PO Q12H PRN (Reason: Agitation) Discharge Orders: Discharge Order (Routine); Ordered 07/08/24 Ordered By: Antwan Simmons Diet: Advance to usual diet Activity on Discharge: As tolerated Stand Alone Forms: Patient Portal Discharge page Print Language: Malay Care Plan Goals: stroke prevention Health Concerns: TIA or encephalopathy hyponatremia due to dehydration Plan of Treatment: take aspirin 81 mg daily consider taking atorvastatin 40 mg daily for stroke prevention. Listed as allergy on pt's medication list but details not available. Patient's doctor should review and if no severe reaction, should prescribe atorvastatin Please follow up with your primary care doctor within 1 week. Return to the hospital if you experience recurrent or worsening symptoms. Assessment: See Discharge Summary.
--- NOTE | 2024-07-08 14:54 | MHC.CM.PN ---
Pt has been medically cleared to DC, he will go back to [facility] today via BLS.
--- NOTE | 2024-07-08 15:28 | MHC.SL.SWA ---
Speech Pathologist Impression: WFL Risk of Aspiration Due to: Dysphasia Diet Status: Liquid Consistency and Strategies for Safe Swallow: Liquid Intake Recommendation: Thin Liquid Intake Strategies: Solid Food Consistency: Dietary Recommendations: Regular Additional Modifications to Solid Foods: Oral Medication Intake: Whole with Liquid Please contact the pharmacy regarding appropriate crushable or liquid drug formulations that are available whenever modified delivery is recommended. Compensatory Strategies and Precautions to be Taken for Safe Swallow: Supervision While Eating and Drinking for Safe Swallow: None Needed Foods to Avoid: Swallowing Recommended Treatments: Recommendation for Speech: NA:Typical Evaluation Comment: Patient presents as edentulous, with all other aspects of oral motor function and swallow function WFL. Patient's speech presented as back to baseline, with no evidence of dysarthria. Recommend continue on Regular Diet with Thin liquids, pills whole with liquid. No further Speech Service indicated. Patient currently pending discharge back to [facility]. Frequency/Duration: Date Range for Service Req: Timeline to reassess: Inspector Handbag Frames Clinican/Clinical Fellow: No Supervisory Statement: I have reviewed and agree with the student/clinical fellow's documentation: No Speech Language Pathologist: Lakeshia Ontiveros M.A., CCC-DIRECTOR OF RESEARCH
[2024-07-08 15:48] VITALS: BP 105/56; PULSE 78; RESP 16; TEMP 36.7; O2SAT 94
[2024-07-08 16:36] LABS: Glucose, Whole Blood 187 mg/dL (60-115)
[2024-07-08 17:02] VITALS: BP 113/58; PULSE 82; RESP 16; TEMP 36.5; O2SAT 95
[2024-07-09 10:42] LABS: Glucose, Whole Blood 252 mg/dL (60-115)
[2024-07-09 10:42] LABS: Glucose, Whole Blood 172 mg/dL (60-115)
== END 2024-07-08 17:22 | disposition skilled nursing facility (03) | DRG 69 ==
LOC: HO.ED 10:09 → HO.EDOVER 12:26 → HO.IMC 17:14
PROVIDERS: Nurse Practitioner Acute Care; Physician Assistant Medical; Admitting Provider Family Medicine; Emergency Provider Emergency Medicine; PCP Emergency Medicine; Visit Provider Family Medicine
DX: G45.9 Transient cerebral ischemic attack, unspecified (principal); G92.8 Other toxic encephalopathy; E87.1 Hypo-osmolality and hyponatremia; T50.915A Adverse effect of multiple unspecified drugs, medicaments and biological substances, initial encounter; R47.1 Dysarthria and anarthria; J44.9 Chronic obstructive pulmonary disease, unspecified; E86.0 Dehydration; I10 Essential (primary) hypertension; D64.9 Anemia, unspecified; F39 Unspecified mood [affective] disorder; G25.81 Restless legs syndrome; Z20.822 Contact with and (suspected) exposure to COVID-19; Z79.82 Long term (current) use of aspirin; Z79.84 Long term (current) use of oral hypoglycemic drugs; Z79.899 Other long term (current) drug therapy
CPT/HCPCS: 0241U; 36415; 70450; 70496; 70498; 71045; 80048; 80061; 81003; 82570; 82947; 83036; 84300; 84484; 85025; 85027; 85610; 85730; 92610; 93005; 93306; 99285; J1650; Q9957; Q9967

== ENCOUNTER → 2024-07-07 08:04 | Outpatient (BNV) | payer MEDICARE, MEDICAID, SELFPAY | PROVIDERS: Emergency Provider Emergency Medicine; PCP Emergency Medicine; Visit Provider Internal Medicine Cardiovascular Disease | DX: R94.31 Abnormal electrocardiogram [ECG] [EKG] (principal); I63.9 Cerebral infarction, unspecified | CPT/HCPCS: 93010 ==

== ENCOUNTER → 2024-07-07 08:04 | Outpatient (BNV) | payer MEDICARE, MEDICAID, SELFPAY | PROVIDERS: Emergency Provider Emergency Medicine; Visit Provider Radiology Diagnostic Radiology | DX: M47.9 Spondylosis, unspecified (principal); G31.89 Other specified degenerative diseases of nervous system; M19.019 Primary osteoarthritis, unspecified shoulder | CPT/HCPCS: 71045 ==

== ENCOUNTER 2024-07-07 12:25 | Outpatient (BNV) | payer MEDICARE, MEDICAID, SELFPAY | END 2024-07-08 07:00 | PROVIDERS: Admitting Provider Family Medicine; Emergency Provider Emergency Medicine; PCP Emergency Medicine; Visit Provider Internal Medicine Cardiovascular Disease | DX: I51.89 Other ill-defined heart diseases (principal) | CPT/HCPCS: 93306 ==

== ENCOUNTER → 2024-07-07 12:25 | Outpatient (BNV) | payer MEDICARE, MEDICAID, SELFPAY | PROVIDERS: Admitting Provider Family Medicine; Emergency Provider Emergency Medicine; PCP Emergency Medicine; Visit Provider Nurse Practitioner Acute Care | DX: E87.1 Hypo-osmolality and hyponatremia (principal); G45.9 Transient cerebral ischemic attack, unspecified | CPT/HCPCS: 99222 ==

== ENCOUNTER → 2024-07-07 12:25 | Outpatient (BNV) | payer MEDICARE, MEDICAID, SELFPAY | PROVIDERS: Admitting Provider Family Medicine; Emergency Provider Emergency Medicine; PCP Emergency Medicine; Visit Provider Psychiatry & Neurology Neurology | DX: G92.8 Other toxic encephalopathy (principal) | CPT/HCPCS: 99222 ==